=== PATIENT | male | born 1970 | race Caucasian/White ===

== ENCOUNTER 2025-03-04 20:23 | Inpatient (IN) | payer OTHER, SELFPAY ==
--- OUTSIDE RECORDS SUMMARY | 2025-03-04 09:10 | XMS_ITS | Encounter Summary ---
Author Organization [facility] Address [address] [place] [id number] Care Team Providers Care Scrubber System Attendant Name Role Phone Anthony Hand MD Unavailable [phone] Anthony Hand MD Primary Care Provider Reason for Visit * Reason Comments Suicidal Encounter Details Date Type Department Care Team (Late st Contact Info) Description 03/04/2025 9:10 AM EST - 03/04/2025 6:07 PM [facility] Hospital Encounter [facility] Emergency Department [address] [place] [address] Teddy Green MD [address] [place] [id number] Jovani Morfin MD [address] [place] [address] Suicidal ideation (Primary Dx); Self-injurious behavior; Homelessness; Non compliance w medication regimen; Major depression, chronic [F32.9] Discharge Disposition: Psychiatric Hospital Social History Tobacco Use Types Packs/Day Years Used Date Smoking Tobacco: Former Cigarettes Smokeless Tobacco: Former Alcohol Use Standard Drinks/Week Comments Yes 0 (1 standard drink = 0.6 oz pure alcohol) 4-5 drinks per week; beer/whiskey [facility] Utilities Answer Date Recorded In the past 12 months has [employer], gas, oil, or water [employer] threatened to shut off services in your home? No 08/18/2024 Humiliation, Afraid, Rape, and Kick questionnair e Answer Date Recorded Within the last year, have y ou been afraid of your partner or ex-partner? No 08/18/2024 Emotionally Abused Not on file 08/18/2024 Physically Abused Not on file 08/18/2024 Sexually Abused Not on file 08/18/2024 Overall Financial Resource Strain (CARDIA) Answe r Date Recorded How hard is it for you to pa y for the very basics like food, housing, medical care, and heating? Not hard at all 08/18/2024 Hunger Vital Sign Answer Date Recorded Within the past 12 months, y ou worried that your food would run out before you got the money to buy more. Never true 08/19/19 25 Ran Out of Food in the Last Year Not on file 08/18/2024 PRAPARE - Transportation Answer Date Re corded In the past 12 months, has l ack of transportation kept you from medical appointments or from getting medications? No 08/08 In the past 12 months, has l ack of transportation kept you from meetings, work, or from getting things needed for daily living? No 08/18/2024 Housing Stability Vital Sign Answer Nik e Recorded In the last 12 months, was t here a time when you were not able to pay the mortgage or rent on time? No 08/18/2024 Number of Times Moved in the Last Year Not on fi le 08/18/2024 At any time in the past 12 m [facility], were you homeless or living in a group home (including now)? No 08/18/2024 Food Insecurity Answer Date Recorded Within the past 12 months, y ou worried that your food would run out before you got the money to buy more. Never true 08/19/19 25 Ran Out of Food in the Last Year Not on file 08/18/2024 Intimate Partner Violence Answer Date R ecorded Emotionally Abused Not on file 08/18/2024 Within the last year, have y ou been afraid of your partner or ex-partner? No 08/18/2024 Physically Abused Not on file 08/18/2024 Sexually Abused Not on file 08/18/2024 Housing Stability Answer Date Recorded Unstable Housing in the Last Year Not on file 08/18/2024 In the last 12 months, was t here a time when you were not able to pay the mortgage or rent on time? No 08/18/2024 [address] Lived in the Last Year Not on f ile 08/18/2024 AUDIT C Answer Date Recorded How often have you had a dri nk containing alcohol, in the past year? 1 03/04/2025 How many standard drinks con taining alcohol have you had on a typical day when you are drinking, in the past year? 1 1 05/04/2024 How often have you had six o r more drinks on one occasion, in the past year? 1 03/04/2025 Sex and Gender Information Value Date Recorded Sex Assigned at Male 05/26/2023 12:47 AM EST Legal Sex Male 12:47 AM EST Gender Identity Male 05/26/2023 12:47 AM EST Sexual Orientation Not on file documented as of this encounter Last Filed Vital Signs Vital Sign Reading Time Taken Comments Blood Pressure 145/85 03/04/2025 4:36 PM EST Pulse 71 03/04/2025 4:36 PM EST Temperature 36.7 C (98.1 F) 03/04/2025 4:23 PM EST Respiratory Rate 16 03/04/2025 4:36 PM EST Oxygen Saturation 99% 03/04/2025 4:36 PM EST Inhaled Oxygen Concentration - - Weight - - Height - - Body Mass Index - - documented in this encounter Functional Status * Are you deaf or do you have serious difficulty hearing? Answer Date of Assessment Author No 03/04/2025 9:38 AM Elías Araiza * Are you blind or do you have serious difficulty seeing, even when wearing glasses? Answer Date of Assessment Author No 03/04/2025 9:38 AM Elías Araiza * Do you have serious difficulty walking or climbing stairs? Answer Date of Assessment Author No 03/04/2025 9:38 AM Elías Araiza * Do you have difficulty dressing or bathing? Answer Date of Assessment Author No 03/04/2025 9:38 AM Elías Araiza * Because of a physical, mental, or emotional condition, do you have difficulty doing errands alone such as visiting the doctor? Answer Date of Assessment Author No 03/04/2025 9:38 AM Elías Araiza documented as of this encounter Mental Status * Because of a physical, mental, or emotional condition, do you have serious difficulty concentrating, remembering, or making decisions? Answer Entry Date Author No 03/04/2025 9:38 AM Elías Araiza documented in this encounter Medications at Time of Discharge amLODIPine (NORVASC) 5 MG tablet Take 1 tablet (5 mg total) by mouth daily for 14 days. 14 tablet 07/29/2022 aspirin 81 MG EC tablet Take 1 tablet (81 mg total) by mouth daily. 11/01/2023 atorvaSTATin (LIPITOR) 20 MG tablet Take 1 tablet (20 mg total) by mouth at bedtime. atorvaSTATin (LIPITOR) 40 MG tablet Take 1 tablet (40 mg total) by mouth at bedtime for 14 days. 14 tablet 1 07/29/2022 buPROPion (WELLBUTRIN XL) 300 MG 24 hr tablet Take 1 tablet (300 mg total) by mouth daily for 14 days. 14 tablet 1 07/29/2022 clindamycin (CLEOCIN) 300 MG capsule Take 1 capsule (300 mg total) by mouth 2 times a day for 7 days. 14 capsule 02/17/2025 cloNIDine (CATAPRES) 0.1 MG tablet Take 1 tablet (0.1 mg total) by mouth 3 times a day for 14 days. 42 tablet 1 07/29/2022 gabapentin (NEURONTIN) 600 MG tablet Take 1 tablet (600 mg total) by mouth 3 times a day for 14 days. 42 tablet 1 07/29/2022 hydrOXYzine HCL (ATARAX) 50 MG tablet Take 1 tablet (50 mg total) by mouth every 4 hours as needed for itching or anxiety. lithium ER (ESKALITH) 450 MG ER tablet Take 2 tablets (900 mg total) by mouth at bedtime. metFORMIN (GLUCOPHAGE) 1000 MG tablet Take 1 tablet (1,000 mg total) by mouth 2 times a day with breakfast & dinner for 14 days. 28 tablet 1 07/29/2022 pantoprazole (PROTONIX) [address] tablet Take 1 tablet (40 mg total) by mouth daily. 11/01/2023 risperiDONE (RisperDAL) 3 MG tablet Take 1 tablet (3 mg total) by mouth at bedtime. documented as of this encounter Progress Notes * Dustin Vazquez - 03/04/2025 3:00 PM EST Behavioral Health Crisis Consult- Contact Note Patient: Alonso Castro : 1970 Admit Date: 03/04/2025 Date of Consult: 03/04/2025 Time of Consult: 3:00 PM Narrative: Patient: Alonso Castro Accepting Facility: [facility] Accepting Facility Address: [address] [place] [id number], M5 UNIT Accepting MD: Dr Blackwood Arrival Time: 6pm arrival Nurse to Nurse Report: they are calling for N2N Other Labs or Needs: UTOX, EKG HCP/Guardian (if applicable): N/A Reason for Section 12: SI Information Given To: Via secure chat documented in this encounter Consult Notes * Alonso Ortega - 03/04/2025 10:37 AM EST Behavioral Health Crisis Consult - Initial Assessment Patient: Alonso Castro : 1970 Admit Date: 03/04/2025 Date of Consult: 03/04/2025 Time of Consult: 10:37 AM Consult Requested by: Teddy Green MD Reason for Consult: Reason for Consult: SI Chief Complaint Patient presents with Suicidal History of Present Illness: Patient is a 54 y.o. male with past medical and psychiatric history as listed who presented to the hospital on 03/04/2025 for Suicidal. Behavioral Health is consulted for SI. The patient is a 54yo male w/ a hx of numerous hospitalizations who was BIBA after reporting SI to police. He was agitated upon arrival and required physical restraints. He was just d/c from an [facility] hospital yesterday. The patient has been hospitalized numerous times; he reports that he does not want to be alive as long as he is homeless. He does not want to stay at shelters. His d/c plan from the hospital notes that he was planning to go to [place] and stay w/ a friend; he reports that this plan did not work out. He reports that he stayed in a friend's truck last night. The patient presents as guarded and irritable. He reports SI w/ a plan to stab (him)self. He denies HI/SIB/AH. He reports that he sees shadows that other people do not see at times. He reports a prior suicide attempt by strangulation w/ an extension cord. He denies any recent substance use. Medical History: has a past medical history of Depression, Diabetes mellitus, GERD (gastroesophageal reflux disease), and Hypertension. has no past surgical history on file. Psychiatric History: History of psychiatric illness?: Yes History of suicidal ideation?: Yes History of non-suicidal self injury?: Yes History of interpersonal aggression?: No History of past ALDO?: Yes Treatment History?: Yes Current Providers?: ([facility] business case analyst, Leighton [phone]) Home Medications: Prescriptions Prior to Admission[1] Current Medications: Scheduled Medications[2] Current PRN: PRN Medications[3] Allergies: Penicillin Substance Use History Alcohol: Substance and Sexual Activity Alcohol Use Yes Comment: 4-5 drinks per week; beer/whiskey Alcohol Details Questions Responses Alcohol frequency 3 or more times/week Alcohol last use 07/08/22 Alcohol type Beer/whiskey Alcohol amount 4 - 5 beers/shots In the past 12 months,have you had 5 or more drinks(men)/4 or more drinks (women) containing alcohol in one day?: No Tobacco: reports that he has quit smoking. His smoking use included cigarettes. He has quit using smokeless tobacco. E-Cigarettes/Vaping Questions Responses E-Cigarette/Vaping Use Never Assessed Passive Exposure No Counseling Given No E-Cigarette/Vaping Substances Questions Responses Nicotine No THC No CBD No Flavoring No Other No E-Cigarette/Vaping Devices Questions Responses Disposable No Pre-filled or Refillable Cartridge No Refillable Tank No Pre-filled Pod No Other: reports current drug use. Drugs: Cocaine and Marijuana. Addiction/Substance Use Substances last used: Within past 12 months In the past year, have you ever used drugs more than you wanted to?: Yes In the past year, have you ever felt you wanted or needed to cut down on your drug use?: Yes Prior treatment for addiction/substance use?: Yes Significant factors: None reported History of withdrawal symptoms: None reported Overdose history: Intentional overdose Relapse pattern: None reported Consequences of addiction/substance use: Employment, Family, Legal, Social Prescription Medications: In the past 12 months,have you used any prescription medications just for the feeling, more than prescribed or that were no prescribed for you?: No Substances: In the past 12 months, have you used any drugs?: No Amphetamine Details Questions Responses Amphetamine frequency Never used Barbituate Details Questions Responses Barbiturate frequency Never used Benzodiazepine Details Questions Responses Benzodiazepine frequency Never used Cannabis Details Questions Responses Cannabis frequency Past occasional use Cannabis last use 07/14/22 Cocaine Details Questions Responses Cocaine frequency Past occasional use Cocaine last use 08/21/24 Cocaine method Snort Ecstasy Details Questions Responses Ecstasy frequency Never used Hallucinogen Details Questions Responses Hallucinogen frequency Never used Heroin Details Questions Responses Heroin frequency Never used Inhalent Details Questions Responses Inhalant frequency Never used Narcotic Details Questions Responses Narcotic frequency Never used Opiate Details Questions Responses Opiate frequency Never used PCP Details Questions Responses PCP frequency Never used Sedative Details Questions Responses Sedative frequency Never used Other Drug Details Questions Responses Other drug frequency Never used Medical and Psychiatric Consequences: Psychosocial Consequences: Social History: homeless, unemployed Socioeconomic History Marital status: Single Number of children: 1 Social History Narrative Patient has [facility] services - case picker is Leighton Herrmann [phone]. He's been livingwith a friend Paolo. 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 Employment Status: Not Employed Type of Residence: Homeless History: History status: No Personal History: has no history on file for sexual activity. Family History: Family History[4] Physical Exam: Patient Vitals for the past 24 hrs: BP Temp Temp src Pulse Resp SpO2 03/04/25 0922 (!) 176/84 97.3 ??F (36.3 ??C) Temporal 70 18 100 % Mental Status Exam: Mental Status Exam General Appearance: Well-developed and appropriately groomed. Appears older than stated age and mild distress. Level of Consciousness: Alert. Orientation: Oriented to person, place, time and situation. Attitude and Behavior: Interactive. Eye Contact: Good eye contact. Psychomotor Activity: Normal. Language: Normal. Mood: Patient description of mood: depressed. Affect: Flat. Thought Process and Associations: Goal directed. Thought Content: Positive for suicidal ideation, suicidal plan and suicidal intent. No self- injurious ideation, no homicidal ideation and not actively hallucinating. No delusions. Attention Span: Appropriate. Memory: Grossly intact. Fund of Knowledge: Normal. Cognition: Normal. Insight: Poor. Judgment: Poor. Labs, Imaging & Other Studies: Laboratory: Recent lab results have been reviewed and are notable for n/a Results for orders placed or performed during the hospital encounter of 03/04/25 (from the past 24 hours) Basic Metabolic Panel Result Value Ref Range Sodium 141 135 - 146 mmol/L Potassium 3.6 3.4 - 5.2 mmol/L Chloride 100 98 - 110 mmol/L Total CO2/Bicarbonate 26 24 - 32 mmol/L Anion Gap 14 2 - 15 mmol/L BUN 25 (H) 6 - 20 mg/dL Creatinine, Blood 1.20 0.60 - 1.30 mg/dL Glucose, Blood 112 (H) 70 - 100 mg/dL Calcium 10.2 8.5 - 10.5 mg/dL Estimated GFR(CKD-EPI) 71 >=60 mL/min/BSA Plasma Toxicology Screen Result Value Ref Range Acetaminophen Result,Blood <5 (L) 10 - 30 ug/mL Alcohol <10 <10 mg/dL Salicylate Level, Blood <1 <30 mg/dL CBC and Differential Result Value Ref Range WBC 7.22 3.90 - 10.80 K/uL RBC 4.23 4.20 - 5.60 M/uL Hemoglobin 13.8 (L) 14.0 - 17.3 g/dL Hematocrit 43.6 40.0 - 49.0 % MCH 32.6 (H) 25.7 - 32.2 pg MCHC 31.7 (L) 32.0 - 36.0 g/dL MCV 103 (H) 82 - 102 fL RDW 13.0 12.0 - 15.0 % RDW-SD 49.4 32.9 - 69.6 fL Platelet Count 266 150 - 400 K/uL MPV 9.8 8.5 - 13.0 fL Neutrophil 65.9 43.0 - 74.0 % Lymphocyte 21.9 17.0 - 47.0 % Monocyte 8.2 5.0 - 12.0 % Eosinophil 3.0 0.1 - 6.0 % Basophil 0.7 0.0 - 2.0 % Immature Granulocyte ([place], Myelo, Promyelocyte) 0.3 0.0 - 5.0 % Absolute Neutrophil Count 4.76 1.50 - 8.10 K/uL Absolute Immature Granulocyte ([place], Myelo, Promyelocyte) 0.02 0.00 - 0.66 K/uL Absolute Lymphocyte Count 1.58 0.95 - 4.20 K/uL Absolute Monocyte Count 0.59 0.20 - 1.20 K/uL Absolute Eosinophil Count 0.22 0.06 - 0.60 K/uL Absolute Basophil Count 0.05 0.01 - 0.12 K/uL EKG: No studies were reviewed. C-SSRS Screener and SAFE-T: [place] Suicide Severity Rating Scale (C-SSRS) Screener 1) In the past month, have you wished you were or wished you could go to sleep and not wake up?: Yes 2) In the past month, have you actually had any thoughts of killing yourself?: Yes 3) Have you been thinking about how you might do this? (Past 1 Month): Yes 4) Have you had these thoughts and had some intention of acting on them or do you have some intention of acting on them? (Past 1 Month): Yes 5) Have you started to work out or worked out the details of how to kill yourself? Did you intend to carry out this plan? (Past 1 Month): No 6a.) Have you ever done anything, started to do anything, or prepared to do anything to end your life?: Yes 6b.) If 'Yes', was it within the past 3 months?: No C-SSRS Screener Risk Level: High History of Psychiatric Diagnosis:: Mood disorder Presenting Symptoms: Anhedonia Precipitants/ Stressors/ Interpersonal: Homelessness, Inadequate social supports Change in Treatment: Recent inpatient discharge, Non-compliant with treatment Access to lethal methods: Ask specifically about presence or absence of a firearm in the home or ease of accessing: No Step 2: Identify Protective Factors (Protective factors may not counteract significant acute suicide risk factors) Internal Protective Factors: None External Protective Factors: None Step 3: Specific questioning about Thoughts, Plans, and Suicidal Intent - (see Step 1 for Ideation Severity and Behavior) In the past 1 month, how many times have you had these thoughts?: Many times each day In the past 1 month, when you have the thoughts, how long do they last?: 4-8 hours/most of day In the past 1 month, could/can you stop thinking about killing yourself or wanting to if you want to?: Unable to control thoughts In the past 1 month, are there things - anyone or anything (e.g., family, orthodox, pain of ) - that stopped you from wanting to or acting on thoughts of suicide?: Deterrents definitely did not stop you In the past 1 month, what reasons did you have for thinking about wanting to or killing yourself? Was it to end the pain or stop the way you were feeling, or was it to get attention, revenge, or reaction from others? Or both?: Completely to end or stop the pain (you couldn't go on living with the pain you were feeling) Suicidal Ideation Intensity Total Score: 24 Step 4: Guidelines to Determine Level of Risk and Develop Interventions to LOWER Risk Level Suicide Risk Level Determined by the Clinician : High Suicide Risk Rationale for Suicide Risk Level: SI w/ plan to stab himself Management of Suicide Risk: Because the patient is actively suicidal, the patient will be further assessed for psychiatric inpatient level of care Assessment: Patient is a 54 y.o. male with past medical and psychiatric history as above now presents with SI w/ a plan to stab himself. The patient was BIBA by [facility] after making SI statements to them. Despite wanting to come to the hospital, the patient was agitated and required physical restraints upon arrival. He was just d/c from IP psych yesterday. His d/c plan says that he denied SI and was going to go to [place] to stay w/ a friend. He reports that this plan did not work out and he slept in his friend's truck last night while his friend was working at a hotel. He reports that he does not want to be alive if he has to remain homeless. He presents as guarded and slightly irritable. He has been hosp italized numerous times and acknowledges that there is minimal benefit from the hospitalizations other than keeping him safe for a short period of time. Given that he is reporting that he will try tostab himself if he leaves the ER, the patient meets criteria for a section 12/IP LOC at this time. Recommendations: IP Intervention and Stabilization Services Requested: n/a Disposition Recommendation: Inpatient Level of Care Patient meets criteria for opioid use disorder (OUD): No Behavioral Health Diagnosis: F32.9 unsp depressive d/o Duration: Time Spent (min): 90 Discussed with Sr. Logistics Analyst: No Discussed with Medical Team: Yes . Dr. Green Signed by: Alonso Ortega [1] (Not in a hospital admission) [2] [3] [4] Family History Family history unknown: Yes documented in this encounter ED Notes * Irma Mcmanus RN - 03/04/2025 9:19 AM EST Pt BIBEMS from [facility], staff called PD when pt made unknown SI statements. Placed on Section 12 by [employer]. Pt was initially uncooperative and refusing transport upon EMS arrival but became cooperative. En route, he was noted to be biting at his wrists requiring 2 point wrist restraints. Arrives calm and cooperative with care. CBG 226. * Teddy Green MD - 03/04/2025 9:10 AM EST Date of service: 03/04/2025 [facility] EMERGENCY DEPARTMENT EMERGENCY DEPARTMENT ENCOUNTER Arrival Date: 03/04/2025 HPI MDM contains a medically complete HPI PAST MEDICAL HISTORY Past Medical History[1] SOCIAL HISTORY Social History[2] FAMILY HISTORY Family History[3] SURGICAL HISTORY Past Surgical History[4] CURRENT MEDICATIONS Patient Medication List Previous Medications AMLODIPINE (NORVASC) 5 MG TABLET ASPIRIN 81 MG EC TABLET ATORVASTATIN (LIPITOR) 20 MG TABLET ATORVASTATIN (LIPITOR) 40 MG TABLET BUPROPION (WELLBUTRIN XL) 300 MG 24 HR TABLET CLINDAMYCIN (CLEOCIN) 300 MG CAPSULE CLONIDINE (CATAPRES) 0.1 MG TABLET GABAPENTIN (NEURONTIN) 600 MG TABLET HYDROXYZINE HCL (ATARAX) 50 MG TABLET LITHIUM ER (ESKALITH) 450 MG ER TABLET METFORMIN (GLUCOPHAGE) 1000 MG TABLET PANTOPRAZOLE (PROTONIX) [address] TABLET RISPERIDONE (RISPERDAL) 3 MG TABLET ALLERGIES Allergies[5] PHYSICAL EXAM ED Triage Vitals [03/04/25 0922] BP Heart Rate Resp Temp SpO2 (!) 176/84 70 18 97.3 ??F (36.3 ??C) 100 % General: No acute distress HEENT: Normal Appearing Eyelids Neck: Supple Respiratory: No respiratory distress Cardio-Vascular: Normal Rate Abdomen: Non-distended Neurological: No focal neurological deficits appreciated Skin: Warm, Dry Psych: Normal Mood/Affect Labs and Radiology I personally reviewed and interpreted all laboratory results as well as any imaging studies, if ordered, that had resulted at time of admission or discharge. Pending results at time of admission or discharge will be followed up on by the admitting team or QA team, respectively, as necessary. ED COURSE & MEDICAL DECISION MAKING Labs BASIC METABOLIC PANEL - Abnormal Result Value Ref Range Sodium 141 135 - 146 mmol/L Potassium 3.6 3.4 - 5.2 mmol/L Chloride 100 98 - 110 mmol/L Total CO2/Bicarbonate 26 24 - 32 mmol/L Anion Gap 14 2 - 15 mmol/L BUN 25 (*) 6 - 20 mg/dL Creatinine, Blood 1.20 0.60 - 1.30 mg/dL Glucose, Blood 112 (*) 70 - 100 mg/dL Calcium 10.2 8.5 - 10.5 mg/dL Estimated GFR(CKD-EPI) 71 >=60 mL/min/BSA TOXICOLOGY SCREEN, BLOOD - Abnormal Acetaminophen Result,Blood <5 (*) 10 - 30 ug/mL Alcohol <10 <10 mg/dL Salicylate Level, Blood <1 <30 mg/dL CBC AND DIFFERENTIAL - Abnormal WBC 7.22 3.90 - 10.80 K/uL RBC 4.23 4.20 - 5.60 M/uL Hemoglobin 13.8 (*) 14.0 - 17.3 g/dL Hematocrit 43.6 40.0 - 49.0 % MCH 32.6 (*) 25.7 - 32.2 pg MCHC 31.7 (*) 32.0 - 36.0 g/dL MCV 103 (*) 82 - 102 fL RDW 13.0 12.0 - 15.0 % RDW-SD 49.4 32.9 - 69.6 fL Platelet Count 266 150 - 400 K/uL MPV 9.8 8.5 - 13.0 fL Neutrophil 65.9 43.0 - 74.0 % Lymphocyte 21.9 17.0 - 47.0 % Monocyte 8.2 5.0 - 12.0 % Eosinophil 3.0 0.1 - 6.0 % Basophil 0.7 0.0 - 2.0 % Immature Granulocyte ([place], Myelo, Promyelocyte) 0.3 0.0 - 5.0 % Absolute Neutrophil Count 4.76 1.50 - 8.10 K/uL Absolute Immature Granulocyte ([place], Myelo, Promyelocyte) 0.02 0.00 - 0.66 K/uL Absolute Lymphocyte Count 1.58 0.95 - 4.20 K/uL Absolute Monocyte Count 0.59 0.20 - 1.20 K/uL Absolute Eosinophil Count 0.22 0.06 - 0.60 K/uL Absolute Basophil Count 0.05 0.01 - 0.12 K/uL DRUG SCREEN, URINE CBC AND DIFFERENTIAL Narrative: The following orders were created for panel order CBC and Differential. Procedure Abnormality Status --------- ------ CBC and Differential[[id number]] Abnormal Final result Please view results for these tests on the individual orders. No orders to display No orders to display HPI: Historian: Patient 54 y.o. male with history of depression, obesity, diabetes, hypertension, multiple psychiatric hospitalizations presents for evaluation of suicidal ideation. Patient states that he has been living inhis friend's truck. He has a plan to stab himself. Denies HI. History of self-injurious behaviors with biting self. MEDICAL DECISION MAKING: Consideration of Admission/Observation: Escalation of care: yes; ED OBS for psych Discussion with Other Healthcare Provider: Behavioral Health provider: Patient's presentation and condition management discussed Social Work: Patient's social situation and assistance needs discussed Outside records reviewed: -Care everywhere: reviewed for medications, allergies -PDMP: reviewed Urinalysis not indicated as pt without fever or urinary symptoms.. Chest x-ray not indicated as patient without hypoxia or lung findings on physical exam. Prescription medication considered, but not given, after discussion with patient/family: Antibiotics not indicated as patient's presentation does not appear to be bacterial in nature. Social determinants of health that significantly affected care: Patient is homeless ED COURSE/ADDITIONAL MEDICAL DECISION MAKIN-year-old male with hypertension, obesity, lit-[id number] diabetes, depression presents with SI with plan to stab himself. Medically cleared by physical examination. Patient is biting himself. He was placed in soft restraints. Dispo per psychiatry/social work evaluations. Placed in ED observation for safe disposition planning. Clinical Impression Suicidal ideation (Primary) Self-injurious behavior Homelessness Non compliance w medication regimen Note to patient: The Cures Act makes medical notes like these available to patients inthe interest of transparency. However, be advised this is a medical document. It is intended primarily as a peer to peer communication. It is written in medical language and may contain abbreviationsor verbiage that are unfamiliar. It may appear blunt or direct. This is because medical documents are intended to carry relevant information, facts as evident, and the clinical opinion of the practitioner only as of the time of writing. [1] Past Medical History: Diagnosis Date Depression Diabetes mellitus GERD (gastroesophageal reflux disease) Hypertension [2] Social History Socioeconomic History Marital status: Single Number of children: 1 Tobacco Use Smoking status: Former Types: Cigarettes Smokeless tobacco: Former Substance and Sexual Activity Alcohol use: Yes Comment: 4-5 drinks per week; beer/whiskey Drug use: Yes Types: Cocaine, Marijuana Comment: pt denies regular use, MJ occas, cocaine 1-2x month [3] Family History Family history unknown: Yes [4] No past surgical history on file. [5] Allergies Allergen Reactions Penicillin Unknown Teddy Green MD 03/04/25 1325 documented in this encounter Plan of Treatment Not on file documented as of this encounter Procedures Procedure Name Priority Date/Time Associated Diagnosis Comments ECG 12-LEAD STAT 03/04/2025 3:34 PM EST CBC AND DIFFERENTIAL STAT 03/04/2025 9:44 AM EST TOXICOLOGY SCREEN, BLOOD STAT 03/04/2025 9:44 AM EST CBC AND DIFFERENTIAL STAT 03/04/2025 9:44 AM EST BASIC METABOLIC PANEL STAT 03/04/2025 9:44 AM EST documented in this encounter Results * ECG 12 lead (03/04/2025 3:34 PM EST) 03/04/2025 3:35 PM EST Narrative BILKyra CV BIDM ECG - 03/04/2025 3:34 PM EST See ED note for ECG result information. us Teddy Green MD ECG ORDERABLES Final Res ult LUIS ALFREDO CV BIDM ECG * (ABNORMAL) CBC and Differential (03/04/2025 9:44 AM EST) WBC 7.22 3.90 - 10.80 K/uL 03/04/2025 10:06 AM [facility] RBC 4.23 4.20 - 5.60 M/uL 03/04/2025 10:06 AM [facility] Hemoglobin 13.8(L) 14.0 - 17.3 g/dL 03/04/2025 10:06 AM [facility] Hematocrit 43.6 40.0 - 49.0 % 03/04/2025 10:06 AM [facility] MCH 32.6(H) 25.7 - 32.2 pg 03/04/2025 10:06 AM [facility] MCHC 31.7(L) 32.0 - 36.0 g/dL 03/04/2025 10:06 AM [facility] MCV 103(H) 82 - 102 fL 03/04/2025 10:06 AM [facility] RDW 13.0 12.0 - 15.0 % 03/04/2025 10:06 AM [facility] RDW-SD 49.4 32.9 - 69.6 fL 03/04/2025 10:06 AM [facility] Platelet Count 266 150 - 400 K/uL 03/04/2025 10:06 AM [facility] MPV 9.8 8.5 - 13.0 fL 03/04/2025 10:06 AM [facility] Neutrophil 65.9 43.0 - 74.0 % 03/04/2025 10:06 AM [facility] Lymphocyte 21.9 17.0 - 47.0 % 03/04/2025 10:06 AM [facility] Monocyte 8.2 5.0 - 12.0 % 03/04/2025 10:06 AM [facility] Eosinophil 3.0 0.1 - 6.0 % 03/04/2025 10:06 AM [facility] Basophil 0.7 0.0 - 2.0 % 03/04/2025 10:06 AM [facility] Immature Granulocyte ([place], Myelo, Promyelocyte) 0.3 0.0 - 5.0 % 03/04/2025 10:06 AM [facility] Absolute Neutrophil Count 4.76 1.50 - 8.10 K/uL 03/04/2025 10:06 AM [facility] Absolute Immature Granulocyte ([place], Myelo, Promyelocyte) 0.02 0.00 - 0.66 K/uL 03/04/2025 10:06 AM [facility] Absolute Lymphocyte Count 1.58 0.95 - 4.20 K/uL 03/04/2025 10:06 AM [facility] Absolute Monocyte Count 0.59 0.20 - 1.20 K/uL 03/04/2025 10:06 AM [facility] Absolute Eosinophil Count 0.22 0.06 - 0.60 K/uL 03/04/2025 10:06 AM [facility] Absolute Basophil Count 0.05 0.01 - 0.12 K/uL 03/04/2025 10:06 AM [facility] Blood PERIPHERAL BLOOD SPECIMEN / Unknown Venipuncture / Unknown 03/04/2025 9:44 AM EST 03/04/2025 9:46 AM EST us Teddy Green MD LAB BLOOD ORDERABLES Donna valentin Result [facility] [address] [place] [address], * (ABNORMAL) Plasma Toxicology Screen (03/04/2025 9:44 AM EST) Acetaminophen Result,Blood <5(L) 10 - 30 ug/mL 03/04/2025 10:12 AM [facility] Alcohol <10 <10 mg/dL 03/04/2025 10:12 AM [facility] Salicylate Level, Blood <1 <30 mg/dL 03/04/2025 10:12 AM [facility] Blood PERIPHERAL BLOOD SPECIMEN / Unknown Venipuncture / Unknown 03/04/2025 9:44 AM EST 03/04/2025 9:46 AM EST us Teddy Green MD LAB BLOOD ORDERABLES Donna l Result [facility] [address] [place] [address], * (ABNORMAL) Basic Metabolic Panel (03/04/2025 9:44 AM EST) Sodium 141 135 - 146 mmol/L 03/04/2025 10:12 AM [facility] Potassium 3.6 3.4 - 5.2 mmol/L 03/04/2025 10:12 AM [facility] Chloride 100 98 - 110 mmol/L 03/04/2025 10:12 AM [facility] Total CO2/Bicarbonat e 26 24 - 32 mmol/L 03/04/2025 10:12 AM [facility] Anion Gap 14 2 - 15 mmol/L 03/04/2025 10:12 AM [facility] BUN 25(H) 6 - 20 mg/dL 03/04/2025 10:12 AM [facility] Creatinine, Blood 1.20 0.60 - 1.30 mg/dL 03/04/2025 10:12 AM [facility] Glucose, Blood 112(H) 70 - 100 mg/dL 03/04/2025 10:12 AM [facility] Calcium 10.2 8.5 - 10.5 mg/dL 03/04/2025 10:12 AM [facility] Estimated GFR(CKD-EPI) 71 >=60 mL/min/BSA 03/04/2025 10:12 AM [facility] Blood PERIPHERAL BLOOD SPECIMEN / Unknown Venipuncture / Unknown 03/04/2025 9:44 AM EST 03/04/2025 9:46 AM EST Teddy Green MD LAB BLOOD ORDERABLES Donna l Result [facility] [address] [place] [address], [place] documented in this encounter Visit Diagnoses Diagnosis Suicidal ideation- Primary Self-injurious behavior Unspecified nonpsychotic mental disorder Homelessness Lack of housing Non compliance w medication regimen Major depression, chronic [F32.9] documented in this encounter Administered Medications Inactive Administered Medications - up to 3 most recent administrations Medication Order MAR Action Action Date Dose Rate Site amLODIPine (NORVASC) tablet 10 mg 10 mg, Oral, Daily, First dose on Mon03/04/25 at 1421, Until Discontinued Given 03/04/2025 4:32 PM EST 10 mg aspirin EC tablet 81 mg 81 mg, Oral, Daily, First dose on Mon03/04/25 at 1421, Until Discontinued Given 03/04/2025 4:32 PM EST 81 mg buPROPion (WELLBUTRIN XL) 24 hr tablet 300 mg 300 mg, Oral, Daily, First dose on Mon03/04/25 at 1421, Until Discontinued Given 03/04/2025 4:31 PM EST 300 mg gabapentin (NEURONTIN) capsule 600 mg 600 mg, Oral, 3 times daily, First dose on Mon03/04/25 at 1600, Until Discontinued Given 03/04/2025 4:32 PM EST 600 mg pantoprazole (PROTONIX) DR tablet 40 mg 40 mg, Oral, Daily, First dose on Mon03/04/25 at 1421, Until Discontinued Given 03/04/2025 4:32 PM EST 40 mg documented in this encounter Active and Recently Administered Medications Times are shown in EST. Scheduled Medication Order 03/02/2025 03/03/2025 03/04/2025 amLODIPine (NORVASC) tablet 10 mg 10 mg, Oral, Daily, First dose on Mon03/04/25 at 1421, Until Discontinued 1632 (Given - Provid er: Irma Mcmanus RN) aspirin EC tablet 81 mg 81 mg, Oral, Daily, First dose on Mon03/04/25 at 1421, Until Discontinued 1632 (Given - Provid er: Irma Mcmanus RN) atorvaSTATin (LIPITOR) tablet 20 mg 20 mg, Oral, At bedtime, First dose on Mon03/04/25 at 2100, Until Discontinued buPROPion (WELLBUTRIN XL) 24 hr tablet 300 mg 300 mg, Oral, Daily, First dose on Mon03/04/25 at 1421, Until Discontinued 1631 (Given - Provid er: Irma Mcmanus RN) gabapentin (NEURONTIN) capsule 600 mg 600 mg, Oral, 3 times daily, First dose on Mon03/04/25 at 1600, Until Discontinued 1632 (Given - Provid er: Irma Mcmanus RN) lithium ER (ESKALITH) ER tablet 900 mg 900 mg, Oral, At bedtime (IBH), First dose on Mon03/04/25 at 2100, Until Discontinued metFORMIN (GLUCOPHAGE) tablet 1,000 mg 1,000 mg, Oral, 2 times daily with breakfast and dinner, First dose on Mon03/04/25 at 1730, Until Discontinued 1730 (Canceled Entry - Provider: Automatic Discharge Provider - Comment: Automatically canceled at discontinue of medication order) pantoprazole (PROTONIX) DR tablet 40 mg 40 mg, Oral, Daily, First dose on Mon03/04/25 at 1421, Until Discontinued 163 (Given - Provid er: Irma Mcmanus RN) risperiDONE (RisperDAL) tablet 3 mg 3 mg, Oral, At bedtime, First dose on Mon03/04/25 at 2100, Until Discontinued PRN Medication Order 03/02/2025 03/03/2025 03/04/2025 hydrOXYzine HCL (ATARAX) tablet 50 mg 50 mg, Oral, Every 4 hours PRN, Starting on Mon03/04/25 at 1419, Until Mon03/04/25 at 2007, itching, anxiety documented in this encounter Care Teams Scrubber System Attendant Relationship Specialty Start Date End Date Anthony Hand MD [address] [place] [address] PCP - Insurance Assigned PCP 07/18/22 Anthony Hand MD [address] [place] [address] PCP - General Family Practice 07/18/22 documented as of this encounter
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
--- OUTSIDE RECORDS SUMMARY | 2025-03-04 20:31 | XMS_ITS | Encounter Summary ---
Author Organization [facility]el[facility] Aaliyah shukla Address [address] [place] [address] Care Team Providers Care Interactive Art Director Name Role Phone Anthony Hand MD Unavailable [phone] Atnhony Hand MD Primary Care Provider [phone] Encounter Details Date Type Department Care Team (Latest Contact Info) Description 03/04/2025 Travel Social History Tobacco Use Types Packs/Day Years Used Date Smoking Tobacco: Former Cigarettes Smokeless Tobacco: Former Alcohol Use Standard Drinks/Week Comments Yes 0 (1 standard drink = 0.6 oz pure alcohol) 4-5 drinks per week; beer/whiskey [facility] Utilities Answer Date Recorded In the past 12 months has [email or web address], gas, oil, or water [facility] threatened to shut off services in your [...] any time in the past 12 m [facility], were you homeless or living in a custodial (including now)? No 08/18/2024 Food Insecurity Answer Date Recorded Within the past 12 months, y ou worried that your food would run out before you got the money to buy more. Never true 08/19/19 Ran Out of Food in the Last [...] on file documented as of this encounter Functional Status * Are you deaf or do you have serious difficulty hearing? Answer Date of Assessment Author No 03/04/2025 9:38 AM EST Iwunze, A shley * Are you blind or do you have serious difficulty seeing, even when wearing glasses? Answer Date of Assessment Author No 03/04/2025 9:38 AM LARON Chloeeugene Elías dena * Do you have serious difficulty walking or climbing stairs? Answer Date of Assessment Author No 03/04/2025 9:38 AM LARON Coronaeugene Elías shdawson * Do you have difficulty dressing or bathing? Answer Date of Assessment Author No 03/04/2025 9:38 AM LARON Alva Elías dena * Because of a physical, mental, or emotional condition, do you have difficulty doing errands alone such as visiting the doctor? Answer Date of Assessment Author No 03/04/2025 9:38 AM LARON Esmeifeanyi Elías martindawson documented as of this encounter Mental Status * Because of a physical, mental, or emotional condition, do you have serious difficulty concentrating, remembering, or making decisions? Answer Entry Date Author No 03/04/2025 9:38 AM LARON Alva Elías dena documented in this encounter Plan of Treatment Not on file documented as of this encounter Visit Diagnoses Not on filedocumented in this encounter Care Teams Interactive Art Director Relationship Specialty Start Date End Date Anthony Hand MD [address] [place] [address] PCP - Insurance Assigned PCP 07/18/22 Anthony Hand MD [address] [place] [address] PCP - General Family Practice 07/18/22 documented as of this encounter
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
[2025-03-04 21:05] VITALS: BP 127/80; PULSE 89; TEMP 36.6; O2SAT 95
[2025-03-04 21:36] LABS: Glucose, Whole Blood 153 mg/dL (60-115)
--- NOTE | 2025-03-05 03:10 | PC.ADMIT ---
Addendum entered by Apurva Short RN 03/05/25 03:29: Patient denies nictotine use, and would like a flu shot. Original Note: Alonso Castro was admitted to as a CV on 15 minute checks from [facility] at 2054 on 03/04/25. His skin and safety check was completed; this was remarkable for reddened areas on the left wrist,which are a result of SIB of biting, and a reddened rash under his pannus. Mr. Castro was agitated when he was admitted to [facility], and was restrained physically at that time. He has a history of psychiatric admissions; he has a PMH that includes Diabetes, hypertension, GERD, and his EKG revealed a 1st degree AV block. He reports using cocaine and marijuana, although he has not submitted a urine yet for a toxicology screen. He states he does not drink often, and his last drink was 07/08/24. He endorses SI at the time of admission, and is depressed and anxious, although his affect is flat. He was pleasant but guarded with this race and sports book writer; when his safety check was done, he had a bagged lunch then retired to [address].
[2025-03-05 08:00] VITALS: BP 131/60; PULSE 75; TEMP 36.8; O2SAT 96
--- NOTE | 2025-03-05 08:12 | HO.PM.IMCN ---
History of Present Illness Data of Consult Service Date: 03/05/25 Primary Care Provider: Nonstaff Physician HPI Reason for consult: [place] consult 54-year-old male with past medical history of depression, diabetes, GERD, hypertension, obesity presented to the emergency room for suicide ideation with plans to stab himself. In the ED he was noted to be biting himself placed in soft restraints. patient's initial metabolic panel without any evidence of renal injury, electrolyte imbalance. CBC without anemia or leukocytosis. Patient bite jamin on his right wrist from repeatedly biting himself. No evidence of redness, warmth, or drainage noted. He has no medical concerns. Review of Systems Review of Systems: Denies any shortness of breath, chest pain, palpitations, dizziness, lightheadedness, headaches, dysuria, abdominal pain or discomfort, nausea, vomiting or diarrhea. Denies chills, body aches, muscle aches, fatigue or weight loss. PMFSH Social History Household Members: Friend(s) Housing: Homeless Housing Other:: Hot in [place] Do you presently have visiting nurse or other home services: No Patient Tobacco Use Status: Never used Tobacco Currently Displaying Signs/Symptoms of Drug Intoxication Withdrawal: No Have you been hit, kicked, punched, or otherwise hurt by someone within the past year? If so, by whom?: No Do you feel safe in your current relationship?: No Current Relationship Is there a partner from a previous relationship who is making you feel unsafe now?: No Are you made to feel afraid or neglected: No Spiritual Healthcare Practices: none Rastafari Healthcare Practices: none Cultural Healthcare Practices: none Advance Directives: No Advance Directives Information Provided: No Do you have thoughts of harming others: None Do you have a plan to hurt others: Specific Recently lost weight without trying: No How much weight loss: Not applicable Eating poorly because of decreased appetite: No Nutrition screen score: 0 Nutrition Risks: No Nutritional Risk Poor oral hygiene: No Meds Allergies Allergy/AdvReac Type Severity Reaction Status Date / Time Penicillins (PCN) AdvReac Unknown Unknown Unverified 03/04/25 19:21 Active Medications: Current Medications Acetaminophen (Acetaminophen 325 Mg Tablet) 650 mg PO Q6H PRN PRN Reason: Headache/Pain, Scale 1-10 Al Hydroxide/Mg Hydroxide (Magnesium Hydrox/Alum Hydrox 30 Ml Oral.Susp) 30 ml PO Q6H PRN PRN Reason: Heartburn/Nausea Dextrose (Dextrose 50 % 25 Gm/50 Ml Syringe) 25 gm IVPUSH Q15M PRN; Protocol PRN Reason: per Hypoglycemia Standing Ord. Glucose (Glucose Gel 15 Gm Gel..Gram.) 15 gm PO Q15M PRN; Protocol PRN Reason: per Hypoglycemia Standing Ord. Hydroxyzine HCl (Hydroxyzine Hcl 25 Mg Tablet) 25 mg PO Q6H PRN PRN Reason: mild anxiety Insulin Human Lispro (Insulin Lispro 100 Unit/Ml 3 Ml Vial) 0 unit SUBCUT [facility]; Protocol Last Admin: 03/04/25 22:14 Dose: 2 unit Magnesium Hydroxide (Milk Of Magnesia 30 Ml Oral.Susp) 30 ml PO DAILY PRN PRN Reason: Constipation Nicotine (Nicotine 21 Mg Patch.Td24) 21 mg TRANSDERMA DAILY PRN PRN Reason: nicotine craving Nicotine Polacrilex (Nicotine Polacrilex 2 Mg Gum) 2 mg BUCCAL Q2H PRN PRN Reason: Nicotine Cravings Olanzapine (Olanzapine 5 Mg Tablet) 5 mg PO BID PRN PRN Reason: agitation Trazodone HCl (Trazodone Hcl 50 Mg Tablet) 50 mg PO BEDTIME MRX1 PRN PRN Reason: Insomnia Home Medications ?Medication ?Instructions ?Recorded ?Confirmed ?Last Taken ?Type amlodipine 5 mg tablet (Norvasc) 5 mg PO DAILY 03/05/25 03/05/25 03/04/25 08:00 History gabapentin 300 mg capsule 600 mg PO TID Leg pain 03/05/25 03/05/25 03/04/25 17:00 History (Neurontin) 600 metformin 500 mg tablet 500 mg PO BID 03/05/25 03/05/25 03/04/25 17:00 History Physical Exam Vital Signs and Narrative: Vital Signs: Last Vital Signs Temp 97.9 F 03/04/25 21:05 Pulse 89 03/04/25 21:05 BP 127/80 03/04/25 21:05 Pulse Ox 95 03/04/25 21:05 O2 Del Method Room Air 03/04/25 21:05 Alert and oriented X3, calm and cooperative. Answers questions. Neuro: CN II-X11 intact, no deficits, visual acuity intact EYES: PERRLA, EOM intact ENT: Hearing intact, MMM Cardiac: S1 S2 RRR, No ectopy Pulmonary: lungs clear to auscultation, No increased WOB. Abdominal: BS active in all 4 quadrants, no guarding or tenderness MSK: Strength 5/5 upper and lower extremities : Deferred Extremities: No edema in lower extremities Psych: Mood stable, Quiet and cooperative. Skin: Warm and dry, Intact. Bite jamin as shown. No evidence of infection at this time Results Labs 03/05/25 09:53 Labs: Laboratory Results - last 24 hr 03/04/25 21:31 POC Glucose 153 H Assessment and Plan (1) Insulin dependent type 2 diabetes mellitus: Status: Acute Plan 54-year-old male with a past medical history listed below presents to the emergency room with suicidal ideation with plans to stab himself and self-harming behavior. Now admitted for inpatient psychiatric stabilization Depression/SI/self-harming behavior Treatment per psychiatric team Type 2 Diabetes Not on any medications, Recent A1c 6.3 Encouraged dietary changes, exercise and weight loss Continue metformin 500 mg b.i.d. Hypertension Continue Norvasc Self-inflicted bite jamin Continue to monitor for evidence of infection. Thank you for allowing me to participate in the care of this patient. Will follow with you, please notify medical provider with any changes in condition or concerns.
[2025-03-05 08:42] LABS: Glucose, Whole Blood 134 mg/dL (60-115)
--- NOTE | 2025-03-05 09:31 | HO.PSYADMNOT ---
HPI Date of Service: 03/05/25 Chief Complaint: SI with plan Sources of Information: patient interviewed, chart reviewed and crisis/core team assessment reviewed HPI Subjective Notes: Estrella Warning and Conditional Voluntary Healthcare Proxy: No Guardianship: No Medical Problems Affecting Mental Status: No Narrative: Per ED note: Patient is is 54 years old single American-speaking male with history of depression, diabetes type 2, GERD, and hypertension presents to the hospital for suicidal thoughts with plan to staff himself. Patient was BIBA the reporting SI to police. Patient was agitated upon arrival and was required physical restraints. He was just discharged from [facility] 03/03. History of numerous hospitalizations, being homeless. He does not want to stay at the shelters. Per discharge note from previous admission, patient was planning to go to [place] to stay with a friend but the plan did not work out. Reports he sees shadows that of other people that not present. History of prior suicide attempts by strangulation with an extension cord. Denies substance use. On M5: Patient met with the delinquency prevention social worker and this provider in the group room C. Report main reason for being here is suicidal with plan to stab myself . Report that he had a knife that he hid it in the brush prior to coming to the ED. Report that he does not feel safe here on the unit. SIB via bitting self which he occasionally bites on his left wrist a couple of times during assessment. Prior to meeting with this provider, nursing reports that patient requested to be on 1-1 which this provider does not think it is necessary as even 5 min safety check wont change his behavior. Report seeing shadows of male and female person but been for while since last time he had that experience. +HI toward his best friend who is now living in [place]. Report 3 suicide attempts via jump of the bridge, suffocated himself with a plastic bag, or with the extended court. SW and this provider asks patient what his goals for the admission and what we could do to help him. Patient does not have goal set. Denies depression or anixety or irritalbe mood. He plans to take shower and explain shower maybe a good relax and coping skill. At the end of conversation, on the way to the door out of the room, patient states that he would kill himself in the shower. Discuss with SW regarding his behavior which we suspects he presents with borderline personality trait. Appear to get attention or secondary gain. SW reports to nursing staff, if necessary, will initiate Behavior plan. Patient is A+Ox3, wearing hospital attire, appear anxious and guarded, demonstrated unsafe self bite behaviors, not bleeding. Some skills issues related to hx of biting as well. Seen by hospitalist. Speech is WNL, sometimes long pause or not want to answer questions. Thought process somewhat disorganized with possible concrete and limited. Poor sleep. Eye mostly avoided. Thought content with passive SI and HI. Not appear to be psychotic. Do not make any delusional or paranoid statements. Poor judgment and insight. Continue to be on 15 minute checks for safety. pa Past Psychiatric History: 20 [facility] admissions in the past couple of years. Last admission was at [facility]. Hx of Respite x3 with last admssion was a couple years ago No Detox hx Have [employer] working [employer]. Medical Evaluation Reviewed: Hospitalist Kavitaal Pending [facility] Narrative: Diabetes HTN Family History: Denies family hx of mental health. Report father is alcoholic. Both parents are . Social History: Single, homeless, has one 34 y.o daughter somewhat involved in his care. Her name is Anupama Currently unemployed. Staying at the hotel where his friend is working. Report able to return was on 7th grade. Do not want to do school. Report he has good childhood and had learning disability. 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 Receive some support money and food stamp but was denied SSI/SSDI. Substance History: Report occasionally binge drinking 30-pack once in a while . Last drink was a couple weeks ago. OPAL: started using at age of 25 y.o. Last use was Monday with $100 every couple of weeks . Denies other substance use Trauma History: Denies Diagnostics Vital Signs (24Hr): Vital Signs - 24 hr 03/04/25 21:05 03/05/25 08:00 Temperature 97.9 F 98.2 F Pulse Rate 89 75 Blood Pressure 127/80 131/60 Pulse Oximetry 95 96 Oxygen Delivery Method Room Air Room Air Labs 03/05/25 09:53 Labs: Laboratory Results - last 48 hr 03/04/25 03/05/25 21:31 08:38 POC Glucose 153 H 134 H Meds/Allergies Meds Home Medications ?Medication ?Instructions ?Recorded ?Confirmed ?Type amlodipine 5 mg tablet (Norvasc) 5 mg PO DAILY 03/05/25 03/05/25 History gabapentin 300 mg capsule 400 mg PO TID Leg pain 03/05/25 03/05/25 History (Neurontin) metformin 500 mg tablet 500 mg PO BID 03/05/25 03/05/25 History Allergies Allergies Allergy/AdvReac Type Severity Reaction Status Date / Time Penicillins (PCN) AdvReac Unknown Unknown Unverified 03/04/25 19:21 Mental Status Exam Mental Status Exam Narrative: Patient is A+Ox3, wearing hospital attire, appear anxious and guarded, demonstrated unsafe self bite behaviors, not bleeding. Some skills issues related to hx of biting as well. Seen by hospitalist. Speech is WNL, sometimes long pause or not want to answer questions. Thought process somewhat disorganized with possible concrete and limited. Poor sleep. Eye mostly avoided. Thought content with passive SI and HI. Not appear to be psychotic. Do not make any delusional or paranoid statements. Poor judgment and insight. Continue to be on 15 minute checks for safety. pa Assessment & Plan Assessment & Plan (1) Depression, unspecified: Status: Acute Code(s): F32.A - Depression, unspecified (2) Insulin dependent type 2 diabetes mellitus: Status: Acute Code(s): E11.9 - Type 2 diabetes mellitus without complications; Z79.4 - care home (current) use of insulin (3) HTN (hypertension): Status: Acute Code(s): I10 - Essential (primary) hypertension Plan HPI: Patient is is 54 years old single American-speaking male with history of depression, diabetes type 2, GERD, and hypertension presents to the hospital for suicidal thoughts with plan to stab himself. Patient was BIBA the reporting SI to police. Patient was agitated upon arrival and was required physical restraints. He was just discharged from [facility] 03/03. History of numerous hospitalizations, being homeless. He does not want to stay at the shelters. Per discharge note from previous admission, patient was planning to go to [place] to stay with a friend but the plan did not work out. Formulation/clinical reasoning: Homeless, more compliant with treatment, noncompliant with medications after discharge, making conditional suicidal statements, he will kill himself with a knife which is available, do not feel safe in community, no outpatient providers, limited supports in community. Current time, does not feel safe in the hospital neither. Even the above information, patient would be benefit in restrictive environment for his own safety, medication management, and refer patient to Psychiatric Services for aftercare. Hospital course: 03/05/25: Discussed with patient regarding medication. Reported that he has not taking medication for 6 months- which was not consistent with ED reports he was in the IP and was just discharged a couple of days ago. Able to recall some of his own medications. Start Seroquel 50 at bedtime with b.i.d. p.r.n. for agitation/severe anxiety Zoloft 50 mg once daily in the morning for depression/anxiety Melatonin 6 mg at bedtime for insomnia Gabapentin 400 t.i.d. for nerve pain on legs. Metformin 500 twice a day for diabetes Point of care q.i.d. per diabetic protocol. Amlodipine 5 mg daily in the morning. Patient good like to have flu vaccine. Plan Patient on 15 minute checks for safety. Initiate behavioral plan not able to remain safe during 15 minute checks. Admitted to M5. CV. Work with treatment team to do collateral. No current outpatient psychiatric services/therapist Contact the hospitalist regarding hospitalist consultation on admission: pending. Patient bite jamin on his right wrist from repeatedly biting himself. No evidence of redness, warmth, or drainage noted. Patient educated on: diagnosis, medication risk/benefits, substance abuse and therapeutic strategies Informed Consent: understands and further education needed Reason for continued inpatient stay Substantial Risk for: med/psych decompensation Statement Statement: I have reviewed the history and physical and performed a pertinent examination on my patient. No changes have occurred unless specified. If the History and Physical was not performed prior to admission, the Hospitalist's service will be consulted for completing the admission physical. Time Spent With Patient Time: Total time managing care of this patient today ____ minutes.
[2025-03-05 09:39] VITALS: BMI 31.5
--- NOTE | 2025-03-05 09:53 | PC.NURSE ---
PT REPORTING SI W/PLAN TO BITE HIMSELF . THEN STATED HE HAS ANOTHER PLAN BUT WILL NOT DISCLOSE. PT IS ON 5-MIN CHECK FOR SUICIDALITY. PROVIDER DIPAK, PROGRAM PROFESSIONAL & SW ALL MADE AWARE. ASKED PT TO CONTRACT FOR SAFETY BUT HE DECLINED. SAYS HE WANTS A 1:1. CLINICIANS MADE AWARE.
--- NOTE | 2025-03-05 09:56 | PC.NURSE ---
PT DECLINES ADDICTIONS CONSULT
[2025-03-05 11:00] LABS: Alanine Aminotransferase 19 U/L (0-40); Albumin Level 4.5 g/dL (3.5-5.0); Alkaline Phosphatase 107 U/L (39-117); Anion Gap 12 (12-20); Aspartate Amino Transferase 23 U/L (5-37); Blood Urea Nitrogen 23 mg/dL (9-16); Calcium 10.1 mg/dL (8.4-10.2); Carbon Dioxide 23 mmol/L (22-29); Chloride 108 mmol/L (96-108); Cholesterol 161 mg/dL (<200); Creatinine Clr Calc Pharmacy 97.2; Estimated Glomerular Filt Rate > 60; HDL Cholesterol 57 mg/dL (>40); Magnesium 1.5 mg/dL (1.6-2.6); Potassium 4.4 mmol/L (3.3-5.1); Sodium 139 mmol/L (135-145); Total Protein 8.2 g/dL (6.5-8.0); Triglycerides 134 mg/dL (<150)
[2025-03-05 11:18] LABS: Free T4 (Free Thyroxine) 1.00 ng/dL (0.71-1.85); Thyroid Stimulating Hormone 1.49 uIU/mL (0.32-4.0)
[2025-03-05 11:29] LABS: Folate 8.1 ng/mL (> or = 4.0); Vitamin B12 310 pg/mL (200-900)
[2025-03-05] MEDS: Flu Vacc TS2025-26(6mo up)/PF 0.5 ML SYRINGE IM (11:40)
[2025-03-05 16:16] LABS: Glucose, Whole Blood 186 mg/dL (60-115)
[2025-03-05] MEDS: Milk of Magnesia 30 ML ORAL.SUSP PO (18:56)
[2025-03-05 20:00] VITALS: BP 124/76; PULSE 78; RESP 16; TEMP 36.6; O2SAT 98
[2025-03-05 20:42] LABS: Glucose, Whole Blood 161 mg/dL (60-115)
[2025-03-06 08:04] VITALS: BP 131/78; PULSE 70; RESP 16; TEMP 36.4; O2SAT 97
[2025-03-06 08:16] LABS: Glucose, Whole Blood 120 mg/dL (60-115)
[2025-03-06 11:48] LABS: Glucose, Whole Blood 207 mg/dL (60-115)
[2025-03-06] MEDS: Milk of Magnesia 30 ML ORAL.SUSP PO (12:45)
--- NOTE | 2025-03-06 13:11 | ECG_ITS ---
Test Reason : chest pain Blood Pressure : */* mmHG Vent. Rate : 90 BPM Atrial Rate : 90 BPM P-R Int : 172 ms QRS Dur : 90 ms QT Int : 350 ms P-R-T Axes : 26 26 19 degrees QTcB Int : 428 ms Poor data quality, interpretation may be adversely affected Normal sinus rhythm Normal ECG No previous ECGs available Referred By: Seda Resendez Electronically Signed By: Chang Landa
[2025-03-06 16:19] LABS: Glucose, Whole Blood 130 mg/dL (60-115)
[2025-03-06 20:00] VITALS: BP 112/67; PULSE 88; RESP 15; TEMP 36.9; O2SAT 98
[2025-03-06 21:46] LABS: Glucose, Whole Blood 174 mg/dL (60-115)
--- NOTE | 2025-03-06 23:27 | HO.PSYCHPN ---
Subjective Subjective Date of Service: 03/06/25 Reason For Visit: SI with plan Subjective Notes: Conditional Voluntary Healthcare Proxy: No Guardianship: No Medical Problems Affecting Mental Status: No Interim History: Medical record and nursing notes reviewed; case discussed during rounds with team/nursing staff, and met with patient for supportive therapy/psychoeducation, as well as medication management. Meet with patient in assigned room where he is eating breakfast. Continue to report passive SI with SIB as usual at baseline. However, he does not bite his skin/arms during encounter. Report no HI/AVH. Denies side effects from meds. slept well and has been eating well. Per nursing, patient slept for 8. Report chest pain comes and goes. Report hx of same experience once in a while. Do not know what works in the past to take the pain away. Asymptomatic. No sign or symptoms of distress or SOB, does not appear to be in pain. No change in circulation. No sweating. Will continue to monitor. Will order EKG to rule out any cardiac issues related to meds changes. Got flu vaccine yesterday on admission. Medication Compliance: Yes Side effects from medications: No Review of Systems Acute medical concerns: No Medical Review of Systems: unchanged Review of Systems Review of Systems Denies any shortness of breath, chest pain, palpitations, dizziness, lightheadedness, headaches, dysuria, abdominal pain or discomfort, nausea, vomiting or diarrhea. Denies chills, body aches, muscle aches, fatigue or weight loss. Some bites moeller from SIB on arms/wrist covered. Report chest pain with no physcial symptoms. Will contineu to monitor Mental Status Exam Mental Status Exam Narrative: Patient is A+Ox3, wearing casual attire, appear relax, no unsafe behavior. not biting on skin. Speech is WNL, concrete, not wordy. Thought process is organized, concrete and limited. Improved in sleep and appetite.. Fair eye contact but mostly not direct eye contact. Thought content with passive SI and SIB. Not appear to be psychotic. Do not make any delusional or paranoid statements. fair judgment and insight. Continue to be on 15 minute checks for safety.. No 1-1 or 5 min check needed. Diagnostics Vital Signs (24Hr): Vital Signs - 24 hr 03/06/25 08:04 03/06/25 20:00 Temperature 97.6 F 98.4 F Pulse Rate 70 88 Respiratory Rate 16 15 Blood Pressure 131/78 112/67 Pulse Oximetry 97 98 Oxygen Delivery Method Room Air BMI result Body Mass Index 31.5 Labs 03/05/25 09:53 Labs: Laboratory Results - last 48 hr 03/05/25 03/05/25 03/05/25 08:38 09:53 16:12 Sodium 139 Potassium 4.4 Chloride 108 Carbon Dioxide 23 Anion Gap 12 BUN 23 H Creatinine 1.17 Estim Creat Clear Calc 97.2 Estimated GFR > 60 POC Glucose 134 H 186 H Random Glucose 179 H Estimat Average Glucose 134 Hemoglobin A1c % 6.3 H Calcium 10.1 Magnesium 1.5 L Total Bilirubin 0.3 AST 23 ALT 19 Alkaline Phosphatase 107 Total Protein 8.2 H Albumin 4.5 Triglycerides 134 Cholesterol 161 LDL Cholesterol, Calc 78 HDL Cholesterol 57 Vitamin B12 310 Folate 8.1 TSH 1.49 Free T4 1.00 03/05/25 03/06/25 03/06/25 20:35 08:12 11:44 Sodium Potassium Chloride Carbon Dioxide Anion Gap BUN Creatinine Estim Creat Clear Calc Estimated GFR POC Glucose 161 H 120 H 207 H Random Glucose Estimat Average Glucose Hemoglobin A1c % Calcium Magnesium Total Bilirubin AST ALT Alkaline Phosphatase Total Protein Albumin Triglycerides Cholesterol LDL Cholesterol, Calc HDL Cholesterol Vitamin B12 Folate TSH Free T4 03/06/25 03/06/25 16:14 21:41 Sodium Potassium Chloride Carbon Dioxide Anion Gap BUN Creatinine Estim Creat Clear Calc Estimated GFR POC Glucose 130 H 174 H Random Glucose Estimat Average Glucose Hemoglobin A1c % Calcium Magnesium Total Bilirubin AST ALT Alkaline Phosphatase Total Protein Albumin Triglycerides Cholesterol LDL Cholesterol, Calc HDL Cholesterol Vitamin B12 Folate TSH Free T4 Medications Medications Current Medications Acetaminophen (Acetaminophen 325 Mg Tablet) 650 mg PO Q6H PRN PRN Reason: Headache/Pain, Scale 1-10 Last Admin: 03/06/25 12:46 Dose: 650 mg Al Hydroxide/Mg Hydroxide (Magnesium Hydrox/Alum Hydrox 30 Ml Oral.Susp) 30 ml PO Q6H PRN PRN Reason: Heartburn/Nausea Amlodipine Besylate (Amlodipine Besylate 5 Mg Tablet) 5 mg PO DAILY [facility]; Protocol Last Admin: 03/06/25 08:56 Dose: 5 mg Dextrose (Dextrose 50 % 25 Gm/50 Ml Syringe) 25 gm IVPUSH Q15M PRN; Protocol PRN Reason: per Hypoglycemia Standing Ord. Gabapentin (Gabapentin 400 Mg Capsule) 400 mg PO TID [facility] Last Admin: 03/06/25 21:50 Dose: 400 mg Glucose (Glucose Gel 15 Gm Gel..Gram.) 15 gm PO Q15M PRN; Protocol PRN Reason: per Hypoglycemia Standing Ord. Hydroxyzine HCl (Hydroxyzine Hcl 25 Mg Tablet) 25 mg PO Q6H PRN PRN Reason: mild anxiety Last Admin: 03/06/25 21:55 Dose: 25 mg Insulin Human Lispro (Insulin Lispro 100 Unit/Ml 3 Ml Vial) 0 unit SUBCUT QIDACHS [facility]; Protocol Last Admin: 03/06/25 21:50 Dose: 2 unit Magnesium Hydroxide (Milk Of Magnesia 30 Ml Oral.Susp) 30 ml PO DAILY PRN PRN Reason: Constipation Last Admin: 03/06/25 12:45 Dose: 30 ml Metformin HCl (Metformin Hcl 500 Mg Tablet) 500 mg PO BIDWM [facility] Last Admin: 03/06/25 17:39 Dose: 500 mg Nicotine (Nicotine 21 Mg Patch.Td24) 21 mg TRANSDERMA DAILY PRN PRN Reason: nicotine craving Nicotine Polacrilex (Nicotine Polacrilex 2 Mg Gum) 2 mg BUCCAL Q2H PRN PRN Reason: Nicotine Cravings Quetiapine Fumarate (Quetiapine Fumarate 50 Mg Tablet) 50 mg PO BEDTIME [facility] Last Admin: 03/06/25 21:50 Dose: 50 mg Quetiapine Fumarate (Quetiapine Fumarate 25 Mg Tablet) 25 mg PO BID PRN PRN Reason: agitation/severe anxiety Last Admin: 03/06/25 21:55 Dose: 25 mg Sertraline HCl (Sertraline Hcl 50 Mg Tablet) 50 mg PO DAILY [facility] Last Admin: 03/06/25 08:56 Dose: 50 mg Trazodone HCl (Trazodone Hcl 50 Mg Tablet) 50 mg PO BEDTIME MRX1 PRN PRN Reason: Insomnia Last Admin: 03/06/25 23:18 Dose: 50 mg Allergies Allergies Allergy/AdvReac Type Severity Reaction Status Date / Time Penicillins (PCN) AdvReac Unknown Unknown Unverified 03/04/25 19:21 Assessment & Plan Assessment & Plan (1) Depression, unspecified: Status: Acute Code(s): F32.A - Depression, unspecified (2) Insulin dependent type 2 diabetes mellitus: Status: Acute Code(s): E11.9 - Type 2 diabetes mellitus without complications; Z79.4 - prison (current) use of insulin (3) HTN (hypertension): Status: Acute Code(s): I10 - Essential (primary) hypertension Plan HPI: Patient is is 54 years old single Khmer-speaking male with history of depression, diabetes type 2, GERD, and hypertension presents to the hospital for suicidal thoughts with plan to stab himself. Patient was BIBA the reporting SI to police. Patient was agitated upon arrival and was required physical restraints. He was just discharged from [facility] hospital 03/03. History of numerous hospitalizations, being homeless. He does not want to stay at the shelters. Per discharge note from previous admission, patient was planning to go to [place] to stay with a friend but the plan did not work out. Formulation/clinical reasoning: Homeless, more compliant with treatment, noncompliant with medications after discharge, making conditional suicidal statements, he will kill himself with a knife which is available, do not feel safe in community, no outpatient providers, limited supports in community. Current time, does not feel safe in the hospital neither. Even the above information, patient would be benefit in restrictive environment for his own safety, medication management, and refer patient to Psychiatric Services for aftercare. Hospital course: 03/05/25: Discussed with patient regarding medication. Reported that he has not taking medication for 6 months- which was not consistent with ED reports he was in the and was just discharged a couple of days ago. Able to recall some of his own medications. Start Seroquel 50 at bedtime with b.i.d. p.r.n. for agitation/severe anxiety Zoloft 50 mg once daily in the morning for depression/anxiety Melatonin 6 mg at bedtime for insomnia Gabapentin 400 t.i.d. for nerve pain on legs. Metformin 500 twice a day for diabetes Point of care q.i.d. per diabetic protocol. Amlodipine 5 mg daily in the morning. Patient good like to have flu vaccine. 03/06/25: Meet with patient in assigned room where he is eating breakfast. Continue to report passive SI with SIB as usual at baseline. However, he does not bite his skin/arms during encounter. Report no HI/AVH. Denies side effects from meds. slept well and has been eating well. Per nursing, patient slept for 8. Report chest pain comes and goes. Report hx of same experience once in a while. Do not know what works in the past to take the pain away. Asymptomatic. No sign or symptoms of distress or SOB, does not appear to be in pain. No change in circulation. No sweating. Will continue to monitor. Will order EKG to rule out any cardiac issues related to meds changes. Got flu vaccine yesterday on admission. Plan Patient on 15 minute checks for safety. Initiate behavioral plan not able to remain safe during 15 minute checks. Admitted to [facility]. Work with treatment team to do collateral. No current outpatient psychiatric services/therapist Contact the hospitalist regarding hospitalist consultation on admission: seen. Patient bite jamin on his right wrist from repeatedly biting himself. No evidence of redness, warmth, or drainage noted. ? Borderline personality disorder. Patient educated on: diagnosis, medication risk/benefits, substance abuse and therapeutic strategies Informed Consent: understands and further education needed Reason for continued inpatient stay Substantial Risk for: med/psych decompensation Time Spent With Patient Time: Total time managing care of this patient today ____ minutes.
[2025-03-07 08:02] LABS: Glucose, Whole Blood 118 mg/dL (60-115)
[2025-03-07 10:37] VITALS: BP 107/61; PULSE 67; RESP 14; TEMP 2.4; TEMP 36.4; O2SAT 97
[2025-03-07 12:18] LABS: Glucose, Whole Blood 169 mg/dL (60-115)
[2025-03-07 17:11] LABS: Glucose, Whole Blood 190 mg/dL (60-115)
--- NOTE | 2025-03-07 19:21 | HO.PSYCHPN ---
Subjective Subjective Date of Service: 03/07/25 Reason For Visit: SI with plan Subjective Notes: Estrella Warning and Conditional Voluntary Healthcare Proxy: No Guardianship: No Medical Problems Affecting Mental Status: No Interim History: Medical record and nursing notes reviewed; case discussed during rounds with team/nursing staff, and met with patient for supportive therapy/psychoeducation, as well as medication management. Meet with patient in assigned room. Remain in bed after breakfast not yet taking AM scheduled meds. Reports no issues with sleep or appetite. Patient says I bit myself last night . I still want to hurt myself . Remind patient and list coping skills that he can use to distract himself with healthier ways to express himself. Denies anxiety but report a little depressed, rated it a 5/10. Denies AVH. Patient also meets with SW later denies SI at that time during assessment. Compliant with meds, denies side effects. Discuss with patient regarding increasing in Zoloft for anxiety/depressed. Patient mostly keeps to self, visible sometimes but not a social person. No pain, no chest pain. Reviewed EKG result with patient. Medication Compliance: Yes Side effects from medications: No Attending Groups: No Review of Systems Acute medical concerns: No Medical Review of Systems: unchanged Review of Systems Review of Systems Denies any shortness of breath, chest pain, palpitations, dizziness, lightheadedness, headaches, dysuria, abdominal pain or discomfort, nausea, vomiting or diarrhea. Denies chills, body aches, muscle aches, fatigue or weight loss. Some bites moeller from SIB on arms/wrist, covered, no active bleeding. No chest pain. Mental Status Exam Mental Status Exam Narrative: Patient is A+Ox3, wearing casual attire, appear relax, no unsafe behavior. not biting on skin during assessment. Speech is WNL, concrete, not wordy. Thought process is organized, concrete and limited. Improved in sleep and appetite.. Fair eye contact but mostly not direct eye contact. Thought content with SI and SIB. Not appear to be psychotic. Do not make any delusional or paranoid statements. fair judgment and insight. Continue to be on 15 minute checks for safety.. No 1-1 or 5 min check needed. Diagnostics Vital Signs (24Hr): Vital Signs - 24 hr 03/06/25 20:00 03/07/25 10:37 Temperature 98.4 F 36.4 F L Pulse Rate 88 67 Respiratory Rate 15 14 Blood Pressure 112/67 107/61 Pulse Oximetry 98 97 Oxygen Delivery Method Room Air BMI result Body Mass Index 31.5 Labs 03/05/25 09:53 Labs: Laboratory Results - last 48 hr 03/05/25 03/06/25 03/06/25 20:35 08:12 11:44 POC Glucose 161 H 120 H 207 H 03/06/25 03/06/25 03/07/25 16:14 21:41 07:58 POC Glucose 130 H 174 H 118 H 03/07/25 03/07/25 12:13 17:07 POC Glucose 169 H 190 H Medications Medications Current Medications Acetaminophen (Acetaminophen 325 Mg Tablet) 650 mg PO Q6H PRN PRN Reason: Headache/Pain, Scale 1-10 Last Admin: 03/06/25 12:46 Dose: 650 mg Al Hydroxide/Mg Hydroxide (Magnesium Hydrox/Alum Hydrox 30 Ml Oral.Susp) 30 ml PO Q6H PRN PRN Reason: Heartburn/Nausea Amlodipine Besylate (Amlodipine Besylate 5 Mg Tablet) 5 mg PO DAILY [facility]; Protocol Last Admin: 03/07/25 10:41 Dose: 5 mg Dextrose (Dextrose 50 % 25 Gm/50 Ml Syringe) 25 gm IVPUSH Q15M PRN; Protocol PRN Reason: per Hypoglycemia Standing Ord. Gabapentin (Gabapentin 400 Mg Capsule) 400 mg PO TID [facility] Last Admin: 03/07/25 14:09 Dose: 400 mg Glucose (Glucose Gel 15 Gm Gel..Gram.) 15 gm PO Q15M PRN; Protocol PRN Reason: per Hypoglycemia Standing Ord. Hydroxyzine HCl (Hydroxyzine Hcl 25 Mg Tablet) 25 mg PO Q6H PRN PRN Reason: mild anxiety Last Admin: 03/06/25 21:55 Dose: 25 mg Insulin Human Lispro (Insulin Lispro 100 Unit/Ml 3 Ml Vial) 0 unit SUBCUT QIDACHS [facility]; Protocol Last Admin: 03/07/25 17:37 Dose: 2 unit Magnesium Hydroxide (Milk Of Magnesia 30 Ml Oral.Susp) 30 ml PO DAILY PRN PRN Reason: Constipation Last Admin: 03/06/25 12:45 Dose: 30 ml Metformin HCl (Metformin Hcl 500 Mg Tablet) 500 mg PO BIDWM [facility] Last Admin: 03/07/25 17:37 Dose: 500 mg Nicotine (Nicotine 21 Mg Patch.Td24) 21 mg TRANSDERMA DAILY PRN PRN Reason: nicotine craving Nicotine Polacrilex (Nicotine Polacrilex 2 Mg Gum) 2 mg BUCCAL Q2H PRN PRN Reason: Nicotine Cravings Quetiapine Fumarate (Quetiapine Fumarate 50 Mg Tablet) 50 mg PO BEDTIME [facility] Last Admin: 03/06/25 21:50 Dose: 50 mg Quetiapine Fumarate (Quetiapine Fumarate 25 Mg Tablet) 25 mg PO BID PRN PRN Reason: agitation/severe anxiety Last Admin: 03/06/25 21:55 Dose: 25 mg Sertraline HCl (Sertraline Hcl 100 Mg Tablet) 100 mg PO DAILY [facility] Trazodone HCl (Trazodone Hcl 50 Mg Tablet) 50 mg PO BEDTIME MRX1 PRN PRN Reason: Insomnia Last Admin: 03/06/25 23:18 Dose: 50 mg Allergies Allergies Allergy/AdvReac Type Severity Reaction Status Date / Time Penicillins (PCN) AdvReac Unknown Unknown Unverified 03/04/25 19:21 Assessment & Plan Assessment & Plan (1) Depression, unspecified: Status: Acute Code(s): F32.A - Depression, unspecified (2) Insulin dependent type 2 diabetes mellitus: Status: Acute Code(s): E11.9 - Type 2 diabetes mellitus without complications; Z79.4 - shelter (current) use of insulin (3) HTN (hypertension): Status: Acute Code(s): I10 - Essential (primary) hypertension Plan HPI: Patient is is 54 years old single Pakistani-speaking male with history of depression, diabetes type 2, GERD, and hypertension presents to the hospital for suicidal thoughts with plan to stab himself. Patient was BIBA the reporting SI to police. Patient was agitated upon arrival and was required physical restraints. He was just discharged from [facility] 03/03. History of numerous hospitalizations, being homeless. He does not want to stay at the shelters. Per discharge note from previous admission, patient was planning to go to [place] to stay with a friend but the plan did not work out. Formulation/clinical reasoning: Homeless, more compliant with treatment, noncompliant with medications after discharge, making conditional suicidal statements, he will kill himself with a knife which is available, do not feel safe in community, no outpatient providers, limited supports in community. Current time, does not feel safe in the hospital neither. Even the above information, patient would be benefit in restrictive environment for his own safety, medication management, and refer patient to Psychiatric Services for aftercare. Hospital course: 03/05/25: Discussed with patient regarding medication. Reported that he has not taking medication for 6 months- which was not consistent with ED reports he was in the IP and was just discharged a couple of days ago. Able to recall some of his own medications. Start Seroquel 50 at bedtime with b.i.d. p.r.n. for agitation/severe anxiety Zoloft 50 mg once daily in the morning for depression/anxiety Melatonin 6 mg at bedtime for insomnia Gabapentin 400 t.i.d. for nerve pain on legs. Metformin 500 twice a day for diabetes Point of care q.i.d. per diabetic protocol. Amlodipine 5 mg daily in the morning. Patient good like to have flu vaccine. 03/06/25: Meet with patient in assigned room where he is eating breakfast. Continue to report passive SI with SIB as usual at baseline. However, he does not bite his skin/arms during encounter. Report no HI/AVH. Denies side effects from meds. slept well and has been eating well. Per nursing, patient slept for 8. Report chest pain comes and goes. Report hx of same experience once in a while. Do not know what works in the past to take the pain away. Asymptomatic. No sign or symptoms of distress or SOB, does not appear to be in pain. No change in circulation. No sweating. Will continue to monitor. Will order EKG to rule out any cardiac issues related to meds changes. Got flu vaccine yesterday on admission. 03/07/25: Meet with patient in assigned room. Remain in bed after breakfast not yet taking AM scheduled meds. Reports no issues with sleep or appetite. Patient says I bit myself last night . I still want to hurt myself . Remind patient and list coping skills that he can use to distract himself with healthier ways to express himself. Denies anxiety but report a little depressed, rated it a 5/10. Denies AVH. Patient also meets with SW later denies SI at that time during assessment. Compliant with meds, denies side effects. Discuss with patient regarding increasing in Zoloft for anxiety/depressed. Patient mostly keeps to self, visible sometimes but not a social person. No pain, no chest pain. Reviewed EKG result with patient. Increase Zoloft up to 100mg for anxiety/depression. Plan Patient on 15 minute checks for safety. Initiate behavioral plan not able to remain safe during 15 minute checks. Admitted to . CV. Work with treatment team to do collateral. No current outpatient psychiatric services/therapist Contact the hospitalist regarding hospitalist consultation on admission: seen. Patient bite jamin on his right wrist from repeatedly biting himself. No evidence of redness, warmth, or drainage noted. ? Borderline personality disorder. Patient educated on: diagnosis, medication risk/benefits and therapeutic strategies Informed Consent: understands and further education needed Reason for continued inpatient stay Substantial Risk for: med/psych decompensation Time Spent With Patient Time: Total time managing care of this patient today ____ minutes.
[2025-03-07 19:44] VITALS: BP 108/62; PULSE 88; RESP 18; TEMP 37.1; O2SAT 95
[2025-03-07 20:11] LABS: Glucose, Whole Blood 136 mg/dL (60-115)
[2025-03-08 07:55] LABS: Glucose, Whole Blood 199 mg/dL (60-115)
[2025-03-08 08:00] VITALS: BP 107/61; PULSE 76; RESP 16; TEMP 36.8; O2SAT 96
[2025-03-08 12:10] LABS: Glucose, Whole Blood 145 mg/dL (60-115)
[2025-03-08 16:31] LABS: Glucose, Whole Blood 214 mg/dL (60-115)
[2025-03-08] MEDS: Magnesium Hydrox/Alum Hydrox 30 ML ORAL.SUSP PO (16:45)
[2025-03-08 19:36] VITALS: BP 100/54; PULSE 79; RESP 20; TEMP 36.9; O2SAT 93
[2025-03-08 20:09] LABS: Glucose, Whole Blood 184 mg/dL (60-115)
--- NOTE | 2025-03-08 23:17 | HO.PSYCHPN ---
Subjective Subjective Date of Service: 03/08/25 Reason For Visit: SI with plan Subjective Notes: Conditional Voluntary Healthcare Proxy: No Guardianship: No Medical Problems Affecting Mental Status: No Interim History: Medical record and nursing notes reviewed; case discussed during rounds with team/nursing staff, and met with patient for supportive therapy/psychoeducation, as well as medication management. Met with patient in, he cover his face with the blanket. Reports seeing black shadows which he scares and cover his face as they tried to attack . No SI be observed the encounter. Wearing the same clothes as on the 1st day he came. Reports shower yesterday. He attempted to this morning when assigned RN encouraged him to do so. Denies voices. Not express suicidal thoughts. Not biting self encounter. Per nursing, patient slept for 8 hours, no side effects. Medication compliant. No appetite issues. Patient agreed to have Seroquel increased up to 100 mg at bedtime for hallucinations. Medication Compliance: Yes Side effects from medications: No Attending Groups: Intermittent Review of Systems Acute medical concerns: No Medical Review of Systems: unchanged Review of Systems Review of Systems Denies any shortness of breath, chest pain, palpitations, dizziness, lightheadedness, headaches, dysuria, abdominal pain or discomfort, nausea, vomiting or diarrhea. Denies chills, body aches, muscle aches, fatigue or weight loss. Some bites moeller from SIB on arms/wrist, covered, no active bleeding. No chest pain. Mental Status Exam Mental Status Exam Narrative: Patient is A+Ox3, wearing casual attire, appear relax, no unsafe behavior. not biting on skin during assessment. Speech is WNL, concrete, not wordy. Thought process is organized, concrete and limited. Improved in sleep and appetite.. Fair eye contact but mostly not direct eye contact.. Not appear to be psychotic. Do not make any delusional or paranoid statements but report VH of shadow.. fair judgment and insight. Continue to be on 15 minute checks for safety.. No 1-1 or 5 min check needed. Diagnostics Vital Signs (24Hr): Vital Signs - 24 hr 03/08/25 08:00 03/08/25 19:36 Temperature 98.2 F 98.4 F Pulse Rate 76 79 Respiratory Rate 16 20 Blood Pressure 107/61 100/54 L Pulse Oximetry 96 93 Oxygen Delivery Method Room Air Room Air BMI result Body Mass Index 31.5 Labs 03/05/25 09:53 Labs: Laboratory Results - last 48 hr 03/07/25 03/07/25 03/07/25 07:58 12:13 17:07 POC Glucose 118 H 169 H 190 H 03/07/25 03/08/25 03/08/25 20:06 07:50 12:07 POC Glucose 136 H 199 H 145 H 03/08/25 03/08/25 16:26 20:05 POC Glucose 214 H 184 H Medications Medications Current Medications Acetaminophen (Acetaminophen 325 Mg Tablet) 650 mg PO Q6H PRN PRN Reason: Headache/Pain, Scale 1-10 Last Admin: 03/06/25 12:46 Dose: 650 mg Al Hydroxide/Mg Hydroxide (Magnesium Hydrox/Alum Hydrox 30 Ml Oral.Susp) 30 ml PO Q6H PRN PRN Reason: Heartburn/Nausea Last Admin: 03/08/25 16:45 Dose: 30 ml Amlodipine Besylate (Amlodipine Besylate 5 Mg Tablet) 5 mg PO DAILY [facility]; Protocol Last Admin: 03/08/25 08:33 Dose: 5 mg Dextrose (Dextrose 50 % 25 Gm/50 Ml Syringe) 25 gm IVPUSH Q15M PRN; Protocol PRN Reason: per Hypoglycemia Standing Ord. Docusate Sodium (Docusate Sodium 100 Mg Capsule) 100 mg PO BID [facility] Last Admin: 03/08/25 21:56 Dose: 100 mg Gabapentin (Gabapentin 400 Mg Capsule) 400 mg PO TID [facility] Last Admin: 03/08/25 21:56 Dose: 400 mg Glucose (Glucose Gel 15 Gm Gel..Gram.) 15 gm PO Q15M PRN; Protocol PRN Reason: per Hypoglycemia Standing Ord. Hydroxyzine HCl (Hydroxyzine Hcl 25 Mg Tablet) 25 mg PO Q6H PRN PRN Reason: mild anxiety Last Admin: 03/08/25 21:56 Dose: 25 mg Insulin Human Lispro (Insulin Lispro 100 Unit/Ml 3 Ml Vial) 0 unit SUBCUT QIDACHS [facility]; Protocol Last Admin: 03/08/25 21:57 Dose: 2 unit Magnesium Hydroxide (Milk Of Magnesia 30 Ml Oral.Susp) 30 ml PO DAILY PRN PRN Reason: Constipation Last Admin: 03/06/25 12:45 Dose: 30 ml Metformin HCl (Metformin Hcl 500 Mg Tablet) 500 mg PO BIDWM [facility] Last Admin: 03/08/25 16:45 Dose: 500 mg Nicotine (Nicotine 21 Mg Patch.Td24) 21 mg TRANSDERMA DAILY PRN PRN Reason: nicotine craving Nicotine Polacrilex (Nicotine Polacrilex 2 Mg Gum) 2 mg BUCCAL Q2H PRN PRN Reason: Nicotine Cravings Quetiapine Fumarate (Quetiapine Fumarate 25 Mg Tablet) 25 mg PO BID PRN PRN Reason: agitation/severe anxiety Last Admin: 03/08/25 21:56 Dose: 25 mg Quetiapine Fumarate (Quetiapine Fumarate 100 Mg Tablet) 100 mg PO BEDTIME [facility] Last Admin: 03/08/25 21:56 Dose: 100 mg Sertraline HCl (Sertraline Hcl 100 Mg Tablet) 100 mg PO DAILY [facility] Last Admin: 03/08/25 08:33 Dose: 100 mg Trazodone HCl (Trazodone Hcl 50 Mg Tablet) 50 mg PO BEDTIME MRX1 PRN PRN Reason: Insomnia Last Admin: 03/08/25 21:56 Dose: 50 mg Allergies Allergies Allergy/AdvReac Type Severity Reaction Status Date / Time Penicillins (PCN) AdvReac Unknown Unknown Unverified 03/04/25 19:21 Assessment & Plan Assessment & Plan (1) Depression, unspecified: Status: Acute Code(s): F32.A - Depression, unspecified (2) Insulin dependent type 2 diabetes mellitus: Status: Acute Code(s): E11.9 - Type 2 diabetes mellitus without complications; Z79.4 - jail (current) use of insulin (3) HTN (hypertension): Status: Acute Code(s): I10 - Essential (primary) hypertension Plan HPI: Patient is is 54 years old single Cameroonian-speaking male with history of depression, diabetes type 2, GERD, and hypertension presents to the hospital for suicidal thoughts with plan to stab himself. Patient was BIBA the reporting SI to police. Patient was agitated upon arrival and was required physical restraints. He was just discharged from [facility] 03/03. History of numerous hospitalizations, being homeless. He does not want to stay at the shelters. Per discharge note from previous admission, patient was planning to go to [place] to stay with a friend but the plan did not work out. Formulation/clinical reasoning: Homeless, more compliant with treatment, noncompliant with medications after discharge, making conditional suicidal statements, he will kill himself with a knife which is available, do not feel safe in community, no outpatient providers, limited supports in community. Current time, does not feel safe in the hospital neither. Even the above information, patient would be benefit in restrictive environment for his own safety, medication management, and refer patient to Psychiatric Services for aftercare. Hospital course: 03/05/25: Discussed with patient regarding medication. Reported that he has not taking medication for 6 months- which was not consistent with ED reports he was in the IP and was just discharged a couple of days ago. Able to recall some of his own medications. Start Seroquel 50 at bedtime with b.i.d. p.r.n. for agitation/severe anxiety Zoloft 50 mg once daily in the morning for depression/anxiety Melatonin 6 mg at bedtime for insomnia Gabapentin 400 t.i.d. for nerve pain on legs. Metformin 500 twice a day for diabetes Point of care q.i.d. per diabetic protocol. Amlodipine 5 mg daily in the morning. Patient good like to have flu vaccine. 03/06/25: Meet with patient in assigned room where he is eating breakfast. Continue to report passive SI with SIB as usual at baseline. However, he does not bite his skin/arms during encounter. Report no HI/AVH. Denies side effects from meds. slept well and has been eating well. Per nursing, patient slept for 8. Report chest pain comes and goes. Report hx of same experience once in a while. Do not know what works in the past to take the pain away. Asymptomatic. No sign or symptoms of distress or SOB, does not appear to be in pain. No change in circulation. No sweating. Will continue to monitor. Will order EKG to rule out any cardiac issues related to meds changes. Got flu vaccine yesterday on admission. 03/07/25: Meet with patient in assigned room. Remain in bed after breakfast not yet taking AM scheduled meds. Reports no issues with sleep or appetite. Patient says I bit myself last night . I still want to hurt myself . Remind patient and list coping skills that he can use to distract himself with healthier ways to express himself. Denies anxiety but report a little depressed, rated it a 5/10. Denies AVH. Patient also meets with SW later denies SI at that time during assessment. Compliant with meds, denies side effects. Discuss with patient regarding increasing in Zoloft for anxiety/depressed. Patient mostly keeps to self, visible sometimes but not a social person. No pain, no chest pain. Reviewed EKG result with patient. Increase Zoloft up to 100mg for anxiety/depression. 03/08/25: Met with patient in, he cover his face with the blanket. Reports seeing black shadows which he scares and cover his face as they tried to attack . No SI be observed the encounter. Wearing the same clothes as on the 1st day he came. Reports shower yesterday. He attempted to this morning when assigned RN encouraged him to do so. Denies voices. Not express suicidal thoughts. Not biting self encounter. Per nursing, patient slept for 8 hours, no side effects. Medication compliant. No appetite issues. Patient agreed to have Seroquel increased up to 100 mg at bedtime for hallucinations. Plan Patient on 15 minute checks for safety. Initiate behavioral plan not able to remain safe during 15 minute checks. Admitted to [facility]. CV. Work with treatment team to do collateral. No current outpatient psychiatric services/therapist Contact the hospitalist regarding hospitalist consultation on admission: seen. Patient bite jamin on his right wrist from repeatedly biting himself. No evidence of redness, warmth, or drainage noted. ? Borderline personality disorder. Patient educated on: diagnosis, medication risk/benefits, substance abuse and therapeutic strategies Informed Consent: understands and further education needed Reason for continued inpatient stay Substantial Risk for: med/psych decompensation Time Spent With Patient Time: Total time managing care of this patient today ____ minutes.
[2025-03-09 07:59] VITALS: BP 118/65; PULSE 70; RESP 16; TEMP 36.3; O2SAT 95
[2025-03-09 08:04] LABS: Glucose, Whole Blood 124 mg/dL (60-115)
[2025-03-09 11:59] LABS: Glucose, Whole Blood 147 mg/dL (60-115)
[2025-03-09 16:36] LABS: Glucose, Whole Blood 164 mg/dL (60-115)
[2025-03-09] MEDS: Milk of Magnesia 30 ML ORAL.SUSP PO (17:04)
[2025-03-09 19:46] VITALS: BP 112/56; PULSE 75; TEMP 36.8; O2SAT 94
[2025-03-09 21:06] LABS: Glucose, Whole Blood 190 mg/dL (60-115)
--- NOTE | 2025-03-09 21:44 | HO.PSYCHPN ---
Subjective Subjective Date of Service: 03/09/25 Reason For Visit: SI with plan Subjective Notes: Conditional Voluntary Healthcare Proxy: No Guardianship: No Medical Problems Affecting Mental Status: No Interim History: Medical record and nursing notes reviewed; case discussed during rounds with team/nursing staff, and met with patient for supportive therapy/psychoeducation, as well as medication management. Patient reports no SI/SIB today for the first time. Also denies VH of shadows but report stomach pain. He cannot explain exactly symptoms. GI issues could be side effects from Sertraline which recently started and current dose is at 100mg daily. Explained and educated patient again regarding this side effects and will continue to monitor. Report he has not yet had BM with colace and MOM. Start on Senna 17.2mg daily at HS. Continue to monitor for BM and GI issues. Patient showered, got laundry done, visible in the rouse, went to one group yesterday but says he did not go to any groups just yet. Patient slept for 8 hours and compliant with medication. Less anxious, less depressed, more pleasant. Continue with current tx plan. Medication Compliance: Yes Side effects from medications: Yes (stomach pain ) Attending Groups: No Review of Systems Acute medical concerns: No Medical Review of Systems: unchanged Review of Systems Review of Systems Denies any shortness of breath, chest pain, palpitations, dizziness, lightheadedness, headaches, dysuria, nausea, vomiting or diarrhea. Denies chills, body aches, muscle aches, fatigue or weight loss. Some bites moeller from SIB on arms/wrist, covered, no active bleeding. No chest pain. Report stomach pain. Mental Status Exam Mental Status Exam Narrative: Patient is A+Ox3, wearing casual attire, appear relax, no unsafe behavior. not biting on skin during assessment. Speech is WNL, concrete, not wordy. Thought process is organized, concrete and limited. Improved in sleep and appetite.. Fair eye contact. Not appear to be psychotic. Do not make any delusional or paranoid statements, denies SI/SIB/HI/AVH.. fair judgment and insight. Continue to be on 15 minute checks for safety.. No 1-1 or 5 min check needed. Diagnostics Vital Signs (24Hr): Vital Signs - 24 hr 03/09/25 07:59 03/09/25 19:46 Temperature 97.3 F 98.2 F Pulse Rate 70 75 Respiratory Rate 16 Blood Pressure 118/65 112/56 L Pulse Oximetry 95 94 Oxygen Delivery Method Room Air Room Air BMI result Body Mass Index 31.5 Labs 03/05/25 09:53 Labs: Laboratory Results - last 48 hr 03/08/25 03/08/25 03/08/25 07:50 12:07 16:26 POC Glucose 199 H 145 H 214 H 03/08/25 03/09/25 03/09/25 20:05 08:00 11:56 POC Glucose 184 H 124 H 147 H 03/09/25 03/09/25 16:31 20:32 POC Glucose 164 H 190 H Medications Medications Current Medications Acetaminophen (Acetaminophen 325 Mg Tablet) 650 mg PO Q6H PRN PRN Reason: Headache/Pain, Scale 1-10 Last Admin: 03/09/25 12:39 Dose: 650 mg Al Hydroxide/Mg Hydroxide (Magnesium Hydrox/Alum Hydrox 30 Ml Oral.Susp) 30 ml PO Q6H PRN PRN Reason: Heartburn/Nausea Last Admin: 03/08/25 16:45 Dose: 30 ml Amlodipine Besylate (Amlodipine Besylate 5 Mg Tablet) 5 mg PO DAILY [facility]; Protocol Last Admin: 03/09/25 08:23 Dose: 5 mg Dextrose (Dextrose 50 % 25 Gm/50 Ml Syringe) 25 gm IVPUSH Q15M PRN; Protocol PRN Reason: per Hypoglycemia Standing Ord. Docusate Sodium (Docusate Sodium 100 Mg Capsule) 100 mg PO BID [facility] Last Admin: 03/09/25 20:56 Dose: 100 mg Gabapentin (Gabapentin 400 Mg Capsule) 400 mg PO TID [facility] Last Admin: 03/09/25 20:56 Dose: 400 mg Glucose (Glucose Gel 15 Gm Gel..Gram.) 15 gm PO Q15M PRN; Protocol PRN Reason: per Hypoglycemia Standing Ord. Hydroxyzine HCl (Hydroxyzine Hcl 25 Mg Tablet) 25 mg PO Q6H PRN PRN Reason: mild anxiety Last Admin: 03/08/25 21:56 Dose: 25 mg Insulin Human Lispro (Insulin Lispro 100 Unit/Ml 3 Ml Vial) 0 unit SUBCUT QIDACHS [facility]; Protocol Last Admin: 03/09/25 20:56 Dose: 2 unit Magnesium Hydroxide (Milk Of Magnesia 30 Ml Oral.Susp) 30 ml PO DAILY PRN PRN Reason: Constipation Last Admin: 03/09/25 17:04 Dose: 30 ml Metformin HCl (Metformin Hcl 500 Mg Tablet) 500 mg PO BIDWM [facility] Last Admin: 03/09/25 17:03 Dose: 500 mg Nicotine (Nicotine 21 Mg Patch.Td24) 21 mg TRANSDERMA DAILY PRN PRN Reason: nicotine craving Nicotine Polacrilex (Nicotine Polacrilex 2 Mg Gum) 2 mg BUCCAL Q2H PRN PRN Reason: Nicotine Cravings Quetiapine Fumarate (Quetiapine Fumarate 25 Mg Tablet) 25 mg PO BID PRN PRN Reason: agitation/severe anxiety Last Admin: 03/08/25 21:56 Dose: 25 mg Quetiapine Fumarate (Quetiapine Fumarate 100 Mg Tablet) 100 mg PO BEDTIME [facility] Last Admin: 03/09/25 20:56 Dose: 100 mg Senna (Sennosides 8.6 Mg Tablet) 17.2 mg PO BEDTIME [facility] Last Admin: 03/09/25 20:56 Dose: 17.2 mg Sertraline HCl (Sertraline Hcl 100 Mg Tablet) 100 mg PO DAILY [facility] Last Admin: 03/09/25 08:23 Dose: 100 mg Trazodone HCl (Trazodone Hcl 50 Mg Tablet) 50 mg PO BEDTIME MRX1 PRN PRN Reason: Insomnia Last Admin: 03/08/25 21:56 Dose: 50 mg Allergies Allergies Allergy/AdvReac Type Severity Reaction Status Date / Time Penicillins (PCN) AdvReac Unknown Unknown Unverified 03/04/25 19:21 Assessment & Plan Assessment & Plan (1) Depression, unspecified: Status: Acute Code(s): F32.A - Depression, unspecified (2) Insulin dependent type 2 diabetes mellitus: Status: Acute Code(s): E11.9 - Type 2 diabetes mellitus without complications; Z79.4 - medical terminologist (current) use of insulin (3) HTN (hypertension): Status: Acute Code(s): I10 - Essential (primary) hypertension Plan HPI: Patient is is 54 years old single Romanian-speaking male with history of depression, diabetes type 2, GERD, and hypertension presents to the hospital for suicidal thoughts with plan to stab himself. Patient was BIBA the reporting SI to police. Patient was agitated upon arrival and was required physical restraints. He was just discharged from [facility] 03/03. History of numerous hospitalizations, being homeless. He does not want to stay at the shelters. Per discharge note from previous admission, patient was planning to go to [place] to stay with a friend but the plan did not work out. Formulation/clinical reasoning: Homeless, more compliant with treatment, noncompliant with medications after discharge, making conditional suicidal statements, he will kill himself with a knife which is available, do not feel safe in community, no outpatient providers, limited supports in community. Current time, does not feel safe in the hospital neither. Even the above information, patient would be benefit in restrictive environment for his own safety, medication management, and refer patient to Psychiatric Services for aftercare. Hospital course: 03/05/25: Discussed with patient regarding medication. Reported that he has not taking medication for 6 months- which was not consistent with ED reports he was in the IP and was just discharged a couple of days ago. Able to recall some of his own medications. Start Seroquel 50 at bedtime with b.i.d. p.r.n. for agitation/severe anxiety Zoloft 50 mg once daily in the morning for depression/anxiety Melatonin 6 mg at bedtime for insomnia Gabapentin 400 t.i.d. for nerve pain on legs. Metformin 500 twice a day for diabetes Point of care q.i.d. per diabetic protocol. Amlodipine 5 mg daily in the morning. Patient good like to have flu vaccine. 03/06/25: Meet with patient in assigned room where he is eating breakfast. Continue to report passive SI with SIB as usual at baseline. However, he does not bite his skin/arms during encounter. Report no HI/AVH. Denies side effects from meds. slept well and has been eating well. Per nursing, patient slept for 8. Report chest pain comes and goes. Report hx of same experience once in a while. Do not know what works in the past to take the pain away. Asymptomatic. No sign or symptoms of distress or SOB, does not appear to be in pain. No change in circulation. No sweating. Will continue to monitor. Will order EKG to rule out any cardiac issues related to meds changes. Got flu vaccine yesterday on admission. 03/07/25: Meet with patient in assigned room. Remain in bed after breakfast not yet taking AM scheduled meds. Reports no issues with sleep or appetite. Patient says I bit myself last night . I still want to hurt myself . Remind patient and list coping skills that he can use to distract himself with healthier ways to express himself. Denies anxiety but report a little depressed, rated it a 5/10. Denies AVH. Patient also meets with SW later denies SI at that time during assessment. Compliant with meds, denies side effects. Discuss with patient regarding increasing in Zoloft for anxiety/depressed. Patient mostly keeps to self, visible sometimes but not a social person. No pain, no chest pain. Reviewed EKG result with patient. Increase Zoloft up to 100mg for anxiety/depression. 03/08/25: Met with patient in, he cover his face with the blanket. Reports seeing black shadows which he scares and cover his face as they tried to attack . No SI be observed the encounter. Wearing the same clothes as on the 1st day he came. Reports shower yesterday. He attempted to this morning when assigned RN encouraged him to do so. Denies voices. Not express suicidal thoughts. Not biting self encounter. Per nursing, patient slept for 8 hours, no side effects. Medication compliant. No appetite issues. Patient agreed to have Seroquel increased up to 100 mg at bedtime for hallucinations. 03/09/25: Patient reports no SI/SIB today for the first time. Also denies VH of shadows but report stomach pain. He cannot explain exactly symptoms. GI issues could be side effects from Sertraline which recently started and current dose is at 100mg daily. Explained and educated patient again regarding this side effects and will continue to monitor. Report he has not yet had BM with colace and MOM. Start on Senna 17.2mg daily at HS. Continue to monitor for BM and GI issues. Patient showered, got laundry done, visible in the rouse, went to one group yesterday but says he did not go to any groups just yet. Patient slept for 8 hours and compliant with medication. Less anxious, less depressed, more pleasant. Continue with current tx plan. Plan Patient on 15 minute checks for safety. Admitted to [facility]. CV. Work with treatment team to do collateral. No current outpatient psychiatric services/therapist but has [facility] worker Contact the hospitalist regarding hospitalist consultation on admission: seen. Patient bite jamin on his right wrist from repeatedly biting himself. No evidence of redness, warmth, or drainage noted. ? Borderline personality disorder. Patient educated on: diagnosis, medication risk/benefits, substance abuse and therapeutic strategies Informed Consent: understands and further education needed Reason for continued inpatient stay Substantial Risk for: med/psych decompensation Time Spent With Patient Time: Total time managing care of this patient today ____ minutes.
[2025-03-10 07:51] LABS: Glucose, Whole Blood 156 mg/dL (60-115)
[2025-03-10 09:40] VITALS: BP 115/68; PULSE 66; RESP 16; TEMP 36.8; O2SAT 96
--- NOTE | 2025-03-10 09:43 | HO.PSYCHPN ---
Subjective Subjective Date of Service: 03/10/25 Reason For Visit: SI with plan Interim History: met with pt; discussed with team; reviewed chart Patient reports that he is doing better and feeling back to his regular self; denies any SI or HI and feels that depression is better. AVH fully resolved, not seeing any shadows and patient reports he is sleeping well. Block Chopper Hand reviewed medications with patient and he does not want any of the doses changed feeling they are adequate. Patient said that he is planning to return to the hotel where he has been living. Mental Status Exam Mental Status Exam Narrative: Pt is alert and oriented; behavior is mostly isolative, keeping to himself in his room but is cooperative on approach and calm, in good behavioral and impulse control, no self-injurious behaviors; patient is not in distress; dressed in hospital attire unkempt, hair pulled back in a ponytail; mood is described as better and affect congruent, more calm; eye contact appropriate; Speech is normal rate, volume and prosody and not pressured; some psychomotor retardation present; thought process is organized and goal directed; Thought content is on tx and discharge; otherwise pertinent to relevant topics and without any delusional content, paranoid ideations or grandiosity; denies any SI/HI. Denies AVH and there is no evidence of perceptual disturbance. Patients insight and judgment improved Diagnostics Vital Signs (24Hr): Vital Signs - 24 hr 03/09/25 19:46 03/10/25 09:40 Temperature 98.2 F 98.3 F Pulse Rate 75 66 Respiratory Rate 16 Blood Pressure 112/56 L 115/68 Pulse Oximetry 94 96 Oxygen Delivery Method Room Air Room Air BMI result Body Mass Index 31.5 Labs 03/12/25 07:59 Labs: Laboratory Results - last 48 hr 03/08/25 03/08/25 03/08/25 12:07 16:26 20:05 POC Glucose 145 H 214 H 184 H 03/09/25 03/09/25 03/09/25 08:00 11:56 16:31 POC Glucose 124 H 147 H 164 H 03/09/25 03/10/25 20:32 07:47 POC Glucose 190 H 156 H Medications Medications Current Medications Acetaminophen (Acetaminophen 325 Mg Tablet) 650 mg PO Q6H PRN PRN Reason: Headache/Pain, Scale 1-10 Last Admin: 03/09/25 12:39 Dose: 650 mg Al Hydroxide/Mg Hydroxide (Magnesium Hydrox/Alum Hydrox 30 Ml Oral.Susp) 30 ml PO Q6H PRN PRN Reason: Heartburn/Nausea Last Admin: 03/08/25 16:45 Dose: 30 ml Amlodipine Besylate (Amlodipine Besylate 5 Mg Tablet) 5 mg PO DAILY [facility]; Protocol Last Admin: 03/09/25 08:23 Dose: 5 mg Dextrose (Dextrose 50 % 25 Gm/50 Ml Syringe) 25 gm IVPUSH Q15M PRN; Protocol PRN Reason: per Hypoglycemia Standing Ord. Docusate Sodium (Docusate Sodium 100 Mg Capsule) 100 mg PO BID [facility] Last Admin: 03/09/25 20:56 Dose: 100 mg Gabapentin (Gabapentin 400 Mg Capsule) 400 mg PO TID [facility] Last Admin: 03/09/25 20:56 Dose: 400 mg Glucose (Glucose Gel 15 Gm Gel..Gram.) 15 gm PO Q15M PRN; Protocol PRN Reason: per Hypoglycemia Standing Ord. Hydroxyzine HCl (Hydroxyzine Hcl 25 Mg Tablet) 25 mg PO Q6H PRN PRN Reason: mild anxiety Last Admin: 03/08/25 21:56 Dose: 25 mg Insulin Human Lispro (Insulin Lispro 100 Unit/Ml 3 Ml Vial) 0 unit SUBCUT QIDACHS [facility]; Protocol Last Admin: 03/09/25 20:56 Dose: 2 unit Magnesium Hydroxide (Milk Of Magnesia 30 Ml Oral.Susp) 30 ml PO DAILY PRN PRN Reason: Constipation Last Admin: 03/09/25 17:04 Dose: 30 ml Metformin HCl (Metformin Hcl 500 Mg Tablet) 500 mg PO BIDWM [facility] Last Admin: 03/09/25 17:03 Dose: 500 mg Nicotine (Nicotine 21 Mg Patch.Td24) 21 mg TRANSDERMA DAILY PRN PRN Reason: nicotine craving Nicotine Polacrilex (Nicotine Polacrilex 2 Mg Gum) 2 mg BUCCAL Q2H PRN PRN Reason: Nicotine Cravings Quetiapine Fumarate (Quetiapine Fumarate 25 Mg Tablet) 25 mg PO BID PRN PRN Reason: agitation/severe anxiety Last Admin: 03/08/25 21:56 Dose: 25 mg Quetiapine Fumarate (Quetiapine Fumarate 100 Mg Tablet) 100 mg PO BEDTIME [facility] Last Admin: 03/09/25 20:56 Dose: 100 mg Senna (Sennosides 8.6 Mg Tablet) 17.2 mg PO BEDTIME [facility] Last Admin: 03/09/25 20:56 Dose: 17.2 mg Sertraline HCl (Sertraline Hcl 100 Mg Tablet) 100 mg PO DAILY [facility] Last Admin: 03/09/25 08:23 Dose: 100 mg Trazodone HCl (Trazodone Hcl 50 Mg Tablet) 50 mg PO BEDTIME MRX1 PRN PRN Reason: Insomnia Last Admin: 03/08/25 21:56 Dose: 50 mg Allergies Allergies Allergy/AdvReac Type Severity Reaction Status Date / Time Penicillins (PCN) AdvReac Unknown Unknown Unverified 03/04/25 19:21 Assessment & Plan Assessment & Plan (1) Depression, unspecified: Status: Acute Code(s): F32.A - Depression, unspecified (2) Insulin dependent type 2 diabetes mellitus: Status: Acute Code(s): E11.9 - Type 2 diabetes mellitus without complications; Z79.4 - skilled nursing (current) use of insulin (3) HTN (hypertension): Status: Acute Code(s): I10 - Essential (primary) hypertension Plan HPI: Patient is is 54 years old single Ethiopian-speaking male with history of depression, diabetes type 2, GERD, and hypertension presents to the hospital for suicidal thoughts with plan to stab himself. Patient was BIBA the reporting SI to police. Patient was agitated upon arrival and was required physical restraints. He was just discharged from [facility] 03/03. History of numerous hospitalizations, being homeless. He does not want to stay at the shelters. Per discharge note from previous admission, patient was planning to go to [place] to stay with a friend but the plan did not work out. Formulation/clinical reasoning: Homeless, more compliant with treatment, noncompliant with medications after discharge, making conditional suicidal statements, he will kill himself with a knife which is available, do not feel safe in community, no outpatient providers, limited supports in community. Current time, does not feel safe in the hospital neither. Even the above information, patient would be benefit in restrictive environment for his own safety, medication management, and refer patient to Psychiatric Services for aftercare. Hospital course: 03/05/25: Discussed with patient regarding medication. Reported that he has not taking medication for 6 months- which was not consistent with ED reports he was in the IP and was just discharged a couple of days ago. Able to recall some of his own medications. Start Seroquel 50 at bedtime with b.i.d. p.r.n. for agitation/severe anxiety Zoloft 50 mg once daily in the morning for depression/anxiety Melatonin 6 mg at bedtime for insomnia Gabapentin 400 t.i.d. for nerve pain on legs. Metformin 500 twice a day for diabetes Point of care q.i.d. per diabetic protocol. Amlodipine 5 mg daily in the morning. Patient good like to have flu vaccine. 03/06/25: Meet with patient in assigned room where he is eating breakfast. Continue to report passive SI with SIB as usual at baseline. However, he does not bite his skin/arms during encounter. Report no HI/AVH. Denies side effects from meds. slept well and has been eating well. Per nursing, patient slept for 8. Report chest pain comes and goes. Report hx of same experience once in a while. Do not know what works in the past to take the pain away. Asymptomatic. No sign or symptoms of distress or SOB, does not appear to be in pain. No change in circulation. No sweating. Will continue to monitor. Will order EKG to rule out any cardiac issues related to meds changes. Got flu vaccine yesterday on admission. 03/07/25: Meet with patient in assigned room. Remain in bed after breakfast not yet taking AM scheduled meds. Reports no issues with sleep or appetite. Patient says I bit myself last night . I still want to hurt myself . Remind patient and list coping skills that he can use to distract himself with healthier ways to express himself. Denies anxiety but report a little depressed, rated it a 5/10. Denies AVH. Patient also meets with SW later denies SI at that time during assessment. Compliant with meds, denies side effects. Discuss with patient regarding increasing in Zoloft for anxiety/depressed. Patient mostly keeps to self, visible sometimes but not a social person. No pain, no chest pain. Reviewed EKG result with patient. Increase Zoloft up to 100mg for anxiety/depression. 03/08/25: Met with patient in, he cover his face with the blanket. Reports seeing black shadows which he scares and cover his face as they tried to attack . No SI be observed the encounter. Wearing the same clothes as on the 1st day he came. Reports shower yesterday. He attempted to this morning when assigned RN encouraged him to do so. Denies voices. Not express suicidal thoughts. Not biting self encounter. Per nursing, patient slept for 8 hours, no side effects. Medication compliant. No appetite issues. Patient agreed to have Seroquel increased up to 100 mg at bedtime for hallucinations. Per nursing, patient slept for 8 hours, no side effects. Medication compliant. No appetite issues. Patient agreed to have Seroquel increased up to 100 mg at bedtime for hallucinations. 03/09/25: Patient reports no SI/SIB today for the first time. Also denies VH of shadows but report stomach pain. He cannot explain exactly symptoms. GI issues could be side effects from Sertraline which recently started and current dose is at 100mg daily. Explained and educated patient again regarding this side effects and will continue to monitor. Report he has not yet had BM with colace and MOM. Start on Senna 17.2mg daily at HS. Continue to monitor for BM and GI issues. Patient showered, got laundry done, visible in the rouse, went to one group yesterday but says he did not go to any groups just yet. Patient slept for 8 hours and compliant with medication. Less anxious, less depressed, more pleasant. Continue with current tx plan. 03/10 Patient reports that he is doing better and feeling back to his regular self; denies any SI or HI and feels that depression is better. AVH fully resolved, not seeing any shadows and patient reports he is sleeping well. Block Chopper Hand reviewed medications with patient and he does not want any of the doses changed feeling they are adequate. Patient said that he is planning to return to the hotel where he has been living. -patient seems to now be in good behavioral control, no biting. If patient able to continue demonstrating good behavioral and impulse control will proceed with discharge planning Plan Patient on 15 minute checks for safety. Initiate behavioral plan not able to remain safe during 15 minute checks. Admitted to . CV. Work with treatment team to do collateral. No current outpatient psychiatric services/therapist Contact the hospitalist regarding hospitalist consultation on admission: seen. Patient bite jamin on his right wrist from repeatedly biting himself. No evidence of redness, warmth, or drainage noted. ? Borderline personality disorder. Patient educated on: diagnosis, medication risk/benefits and therapeutic strategies Informed Consent: understands Reason for continued inpatient stay Substantial Risk for: rapid decompensation Time Spent With Patient Time: Total time managing care of this patient today ____ minutes.
[2025-03-10 12:24] LABS: Glucose, Whole Blood 136 mg/dL (60-115)
[2025-03-10 17:00] LABS: Glucose, Whole Blood 177 mg/dL (60-115)
[2025-03-10 20:00] VITALS: BP 112/69; PULSE 84; RESP 18; TEMP 36.9; O2SAT 94
[2025-03-10 20:56] LABS: Glucose, Whole Blood 166 mg/dL (60-115)
[2025-03-10] MEDS: Milk of Magnesia 30 ML ORAL.SUSP PO (21:46)
[2025-03-11 08:05] LABS: Glucose, Whole Blood 149 mg/dL (60-115)
[2025-03-11 08:10] VITALS: BP 109/65; PULSE 74; RESP 18; TEMP 36.8; O2SAT 96
[2025-03-11 08:59] VITALS: BP 109/65
[2025-03-11 11:58] LABS: Glucose, Whole Blood 261 mg/dL (60-115)
[2025-03-11 17:03] LABS: Glucose, Whole Blood 156 mg/dL (60-115)
--- NOTE | 2025-03-11 17:51 | P.PNPSI_ITS ---
Subjective Subjective Date of Service: 03/11/25 Reason For Visit: SI with plan Interim History: Met with patient; discussed with team Patient continues to report that he is feeling better; remains without any AVH, SI or HI and says he would like to proceed with discharge this . Though he remains isolative, he remains in good behavioral control and with appropriate interactions on approach. Mental Status Exam Mental Status Exam Narrative: Pt is alert and oriented; behavior is mostly isolative, keeping to himself in his room but is cooperative on approach and calm, in good behavioral and impulse control, no self-injurious behaviors; patient is not in distress; dressed in hospital attire unkempt, hair pulled back in a ponytail; mood is described as good and affect congruent, overall more calm; eye contact appropriate; Speech is normal rate, volume and prosody and not pressured; some psychomotor retardation present; thought process is organized and goal directed; Thought content is on tx and discharge; otherwise pertinent to relevant topics and without any delusional content, paranoid ideations or grandiosity; denies any SI/HI. Denies AVH and there is no evidence of perceptual disturbance. Patients insight and judgment fair Diagnostics Vital Signs (24Hr): Vital Signs - 24 hr 03/10/25 20:00 03/11/25 08:10 03/11/25 08:59 Temperature 98.5 F 98.3 F Pulse Rate 84 74 Respiratory Rate 18 18 Blood Pressure 112/69 109/65 109/65 Pulse Oximetry 94 96 Oxygen Delivery Method Room Air Room Air BMI result Body Mass Index 31.5 Labs 03/12/25 07:59 Labs: Laboratory Results - last 48 hr 03/09/25 03/10/25 03/10/25 20:32 07:47 12:19 POC Glucose 190 H 156 H 136 H 03/10/25 03/10/25 03/11/25 16:58 20:53 08:00 POC Glucose 177 H 166 H 149 H 03/11/25 03/11/25 11:54 16:58 POC Glucose 261 H 156 H Medications Medications Current Medications Acetaminophen (Acetaminophen 325 Mg Tablet) 650 mg PO Q6H PRN PRN Reason: Headache/Pain, Scale 1-10 Last Admin: 03/09/25 12:39 Dose: 650 mg Al Hydroxide/Mg Hydroxide (Magnesium Hydrox/Alum Hydrox 30 Ml Oral.Susp) 30 ml PO Q6H PRN PRN Reason: Heartburn/Nausea Last Admin: 03/08/25 16:45 Dose: 30 ml Amlodipine Besylate (Amlodipine Besylate 5 Mg Tablet) 5 mg PO DAILY [facility]; Protocol Last Admin: 03/11/25 08:59 Dose: 5 mg Dextrose (Dextrose 50 % 25 Gm/50 Ml Syringe) 25 gm IVPUSH Q15M PRN; Protocol PRN Reason: per Hypoglycemia Standing Ord. Docusate Sodium (Docusate Sodium 100 Mg Capsule) 100 mg PO BID [facility] Last Admin: 03/11/25 09:00 Dose: 100 mg Gabapentin (Gabapentin 400 Mg Capsule) 400 mg PO TID [facility] Last Admin: 03/11/25 15:05 Dose: 400 mg Glucose (Glucose Gel 15 Gm Gel..Gram.) 15 gm PO Q15M PRN; Protocol PRN Reason: per Hypoglycemia Standing Ord. Hydroxyzine HCl (Hydroxyzine Hcl 25 Mg Tablet) 25 mg PO Q6H PRN PRN Reason: mild anxiety Last Admin: 03/10/25 21:14 Dose: 25 mg Insulin Human Lispro (Insulin Lispro 100 Unit/Ml 3 Ml Vial) 0 unit SUBCUT QIDACHS [facility]; Protocol Last Admin: 03/11/25 17:20 Dose: 2 unit Magnesium Hydroxide (Milk Of Magnesia 30 Ml Oral.Susp) 30 ml PO DAILY PRN PRN Reason: Constipation Last Admin: 03/10/25 21:46 Dose: 30 ml Metformin HCl (Metformin Hcl 500 Mg Tablet) 500 mg PO BIDWM [facility] Last Admin: 03/11/25 17:20 Dose: 500 mg Nicotine (Nicotine 21 Mg Patch.Td24) 21 mg TRANSDERMA DAILY PRN PRN Reason: nicotine craving Nicotine Polacrilex (Nicotine Polacrilex 2 Mg Gum) 2 mg BUCCAL Q2H PRN PRN Reason: Nicotine Cravings Quetiapine Fumarate (Quetiapine Fumarate 25 Mg Tablet) 25 mg PO BID PRN PRN Reason: agitation/severe anxiety Last Admin: 03/10/25 21:15 Dose: 25 mg Quetiapine Fumarate (Quetiapine Fumarate 100 Mg Tablet) 100 mg PO BEDTIME [facility] Last Admin: 03/10/25 21:15 Dose: 100 mg Senna (Sennosides 8.6 Mg Tablet) 17.2 mg PO BEDTIME [facility] Last Admin: 03/10/25 21:15 Dose: 17.2 mg Sertraline HCl (Sertraline Hcl 100 Mg Tablet) 100 mg PO DAILY [facility] Last Admin: 03/11/25 09:00 Dose: 100 mg Trazodone HCl (Trazodone Hcl 50 Mg Tablet) 50 mg PO BEDTIME MRX1 PRN PRN Reason: Insomnia Last Admin: 03/10/25 21:15 Dose: 50 mg Allergies Allergies Allergy/AdvReac Type Severity Reaction Status Date / Time Penicillins (PCN) AdvReac Unknown Rash Verified 03/11/25 09:02 Assessment & Plan Assessment & Plan (1) Depression, unspecified: Status: Acute Code(s): F32.A - Depression, unspecified (2) Insulin dependent type 2 diabetes mellitus: Status: Acute Code(s): E11.9 - Type 2 diabetes mellitus without complications; Z79.4 - nursing home (current) use of insulin (3) HTN (hypertension): Status: Acute Code(s): I10 - Essential (primary) hypertension Plan HPI: Patient is is 54 years old single Egyptian-speaking male with history of depression, diabetes type 2, GERD, and hypertension presents to the hospital for suicidal thoughts with plan to stab himself. Patient was BIBA the reporting SI to police. Patient was agitated upon arrival and was required physical restraints. He was just discharged from [facility] 03/03. History of numerous hospitalizations, being homeless. He does not want to stay at the shelters. Per discharge note from previous admission, patient was planning to go to [place] to stay with a friend but the plan did not work out. Formulation/clinical reasoning: Homeless, more compliant with treatment, noncompliant with medications after discharge, making conditional suicidal statements, he will kill himself with a knife which is available, do not feel safe in community, no outpatient providers, limited supports in community. Current time, does not feel safe in the hospital neither. Even the above information, patient would be benefit in restrictive environment for his own safety, medication management, and refer patient to Psychiatric Services for aftercare. Hospital course: 03/05/25: Discussed with patient regarding medication. Reported that he has not taking medication for 6 months- which was not consistent with ED reports he was in the and was just discharged a couple of days ago. Able to recall some of his own medications. Start Seroquel 50 at bedtime with b.i.d. p.r.n. for agitation/severe anxiety Zoloft 50 mg once daily in the morning for depression/anxiety Melatonin 6 mg at bedtime for insomnia Gabapentin 400 t.i.d. for nerve pain on legs. Metformin 500 twice a day for diabetes Point of care q.i.d. per diabetic protocol. Amlodipine 5 mg daily in the morning. Patient good like to have flu vaccine. 03/06/25: Meet with patient in assigned room where he is eating breakfast. Continue to report passive SI with SIB as usual at baseline. However, he does not bite his skin/arms during encounter. Report no HI/AVH. Denies side effects from meds. slept well and has been eating well. Per nursing, patient slept for 8. Report chest pain comes and goes. Report hx of same experience once in a while. Do not know what works in the past to take the pain away. Asymptomatic. No sign or symptoms of distress or SOB, does not appear to be in pain. No change in circulation. No sweating. Will continue to monitor. Will order EKG to rule out any cardiac issues related to meds changes. Got flu vaccine yesterday on admission. 03/07/25: Meet with patient in assigned room. Remain in bed after breakfast not yet taking AM scheduled meds. Reports no issues with sleep or appetite. Patient says I bit myself last night . I still want to hurt myself . Remind patient and list coping skills that he can use to distract himself with healthier ways to express himself. Denies anxiety but report a little depressed, rated it a 5/10. Denies AVH. Patient also meets with SW later denies SI at that time during assessment. Compliant with meds, denies side effects. Discuss with patient regarding increasing in Zoloft for anxiety/depressed. Patient mostly keeps to self, visible sometimes but not a social person. No pain, no chest pain. Reviewed EKG result with patient. Increase Zoloft up to 100mg for anxiety/depression. 03/08/25: Met with patient in, he cover his face with the blanket. Reports seeing black shadows which he scares and cover his face as they tried to attack . No SI be observed the encounter. Wearing the same clothes as on the 1st day he came. Reports shower yesterday. He attempted to this morning when assigned RN encouraged him to do so. Denies voices. Not express suicidal thoughts. Not biting self encounter. Per nursing, patient slept for 8 hours, no side effects. Medication compliant. No appetite issues. Patient agreed to have Seroquel increased up to 100 mg at bedtime for hallucinations. 03/09/25: Patient reports no SI/SIB today for the first time. Also denies VH of shadows but report stomach pain. He cannot explain exactly symptoms. GI issues could be side effects from Sertraline which recently started and current dose is at 100mg daily. Explained and educated patient again regarding this side effects and will continue to monitor. Report he has not yet had BM with colace and MOM. Start on Senna 17.2mg daily at HS. Continue to monitor for BM and GI issues. Patient showered, got laundry done, visible in the rouse, went to one group yesterday but says he did not go to any groups just yet. Patient slept for 8 hours and compliant with medication. Less anxious, less depressed, more pleasant. Continue with current tx plan. 03/10 Patient reports that he is doing better and feeling back to his regular self; denies any SI or HI and feels that depression is better. AVH fully resolved, not seeing any shadows and patient reports he is sleeping well. Ice Cream Maker reviewed medications with patient and he does not want any of the doses changed feeling they are adequate. Patient said that he is planning to return to the hotel where he has been living. -patient seems to now be in good behavioral control, no biting. If patient able to continue demonstrating good behavioral and impulse control will proceed with discharge planning 03/11 Patient continues to report that he is feeling better; remains without any AVH, SI or HI and says he would like to proceed with discharge this . Though he remains isolative, he remains in good behavioral control and with appropriate interactions on approach -patient continues to report good mood, depression resolved that he remains without AVH, SI or HI; patient remains in good behavioral and impulse control and no self-harming behaviors. Will proceed with discharge planning -regarding history of self-injurious behavior by biting, at this time fiction and nonfiction prose writer has no history to diagnose with borderline personality disorder; rather this seems to have been a regressed behavior when patient is stressed. It is now resolved. Plan Patient on 15 minute checks for safety. Admitted to [facility]. [facility]. Work with treatment team to do collateral. No current outpatient psychiatric services/therapist but has [facility] worker Contact the hospitalist regarding hospitalist consultation on admission: seen. Patient educated on: diagnosis, medication risk/benefits and therapeutic strategies Informed Consent: understands Reason for continued inpatient stay Substantial Risk for: stable for discharge Time Spent With Patient Time: Total time managing care of this patient today ____ minutes.
[2025-03-11 19:44] VITALS: BP 110/70; PULSE 93; TEMP 37.1; O2SAT 98
[2025-03-11 20:43] LABS: Glucose, Whole Blood 187 mg/dL (60-115)
[2025-03-12 08:00] VITALS: BP 116/66; PULSE 81; RESP 16; TEMP 36.7; O2SAT 96
[2025-03-12 08:08] LABS: Glucose, Whole Blood 138 mg/dL (60-115)
[2025-03-12 08:37] LABS: Creatinine Clr Calc Pharmacy 98.9; Estimated Glomerular Filt Rate > 60
[2025-03-12 08:42] VITALS: BP 116/66
[2025-03-12] MEDS: Milk of Magnesia 30 ML ORAL.SUSP PO (08:47)
[2025-03-12 11:52] LABS: Glucose, Whole Blood 158 mg/dL (60-115)
[2025-03-12 16:49] LABS: Glucose, Whole Blood 175 mg/dL (60-115)
[2025-03-12 20:00] VITALS: BP 143/74; PULSE 82; RESP 18; TEMP 37.1; O2SAT 93
[2025-03-12 21:04] LABS: Glucose, Whole Blood 212 mg/dL (60-115)
--- NOTE | 2025-03-12 22:26 | P.PNPSI_ITS ---
Subjective Subjective Date of Service: 03/12/25 Reason For Visit: SI with plan Interim History: Met with patient; discussed with team Patient reports he remains in good mood and looking forward to discharge, patient has a noticeably brighter affect. Patient however complains of constipation and says that his anus his hurting. Sedimentationist and nurse examined area which was a little red, seeming to be from lack of hygiene. Patient agreed to shower and afterwards reported area felt better; patient also had a bowel movement. Mental Status Exam Mental Status Exam Narrative: Pt is alert and oriented; behavior is mostly isolative, keeping to himself in his room but is cooperative on approach and calm, in good behavioral and impulse control, no self-injurious behaviors; patient is not in distress; dressed in hospital attire with adequate hygiene; mood is described as good and affect congruent, brighter, calm; eye contact appropriate; Speech is normal rate, volume and prosody and not pressured; no psychomotor retardation present; thought process is organized and goal directed; Thought content is on tx and discharge; otherwise pertinent to relevant topics and without any delusional content, paranoid ideations or grandiosity; denies any SI/HI. Denies AVH and there is no evidence of perceptual disturbance. Patients insight and judgment fair Diagnostics Vital Signs (24Hr): Vital Signs - 24 hr 03/12/25 08:00 03/12/25 08:42 03/12/25 20:00 Temperature 98.1 F 98.8 F Pulse Rate 81 82 Respiratory Rate 16 18 Blood Pressure 116/66 116/66 143/74 H Pulse Oximetry 96 93 Oxygen Delivery Method Room Air Room Air BMI result Body Mass Index 31.5 Labs 03/12/25 07:59 Labs: Laboratory Results - last 48 hr 03/11/25 03/11/25 03/11/25 08:00 11:54 16:58 Creatinine Estim Creat Clear Calc Estimated GFR POC Glucose 149 H 261 H 156 H 03/11/25 03/12/25 03/12/25 20:39 07:59 08:04 Creatinine 1.15 Estim Creat Clear Calc 98.9 Estimated GFR > 60 POC Glucose 187 H 138 H 03/12/25 03/12/25 03/12/25 11:48 16:45 21:00 Creatinine Estim Creat Clear Calc Estimated GFR POC Glucose 158 H 175 H 212 H Medications Medications Current Medications Acetaminophen (Acetaminophen 325 Mg Tablet) 650 mg PO Q6H PRN PRN Reason: Headache/Pain, Scale 1-10 Last Admin: 03/09/25 12:39 Dose: 650 mg Al Hydroxide/Mg Hydroxide (Magnesium Hydrox/Alum Hydrox 30 Ml Oral.Susp) 30 ml PO Q6H PRN PRN Reason: Heartburn/Nausea Last Admin: 03/08/25 16:45 Dose: 30 ml Amlodipine Besylate (Amlodipine Besylate 5 Mg Tablet) 5 mg PO DAILY [facility]; Protocol Last Admin: 03/12/25 08:42 Dose: 5 mg Dextrose (Dextrose 50 % 25 Gm/50 Ml Syringe) 25 gm IVPUSH Q15M PRN; Protocol PRN Reason: per Hypoglycemia Standing Ord. Docusate Sodium (Docusate Sodium 100 Mg Capsule) 100 mg PO BID [facility] Last Admin: 03/12/25 21:06 Dose: 100 mg Gabapentin (Gabapentin 400 Mg Capsule) 400 mg PO TID [facility] Last Admin: 03/12/25 21:07 Dose: 400 mg Glucose (Glucose Gel 15 Gm Gel..Gram.) 15 gm PO Q15M PRN; Protocol PRN Reason: per Hypoglycemia Standing Ord. Guaifenesin (Guaifenesin La 600 Mg Tab.Er.12h) 600 mg PO BID PRN PRN Reason: Cough Hydroxyzine HCl (Hydroxyzine Hcl 25 Mg Tablet) 25 mg PO Q6H PRN PRN Reason: mild anxiety Last Admin: 03/10/25 21:14 Dose: 25 mg Insulin Human Lispro (Insulin Lispro 100 Unit/Ml 3 Ml Vial) 0 unit SUBCUT QIDACHS [facility]; Protocol Last Admin: 03/12/25 21:08 Dose: 4 unit Magnesium Hydroxide (Milk Of Magnesia 30 Ml Oral.Susp) 30 ml PO DAILY PRN PRN Reason: Constipation Last Admin: 03/12/25 08:47 Dose: 30 ml Metformin HCl (Metformin Hcl 500 Mg Tablet) 500 mg PO BIDWM [facility] Last Admin: 03/12/25 17:39 Dose: 500 mg Nicotine (Nicotine 21 Mg Patch.Td24) 21 mg TRANSDERMA DAILY PRN PRN Reason: nicotine craving Nicotine Polacrilex (Nicotine Polacrilex 2 Mg Gum) 2 mg BUCCAL Q2H PRN PRN Reason: Nicotine Cravings Polyethylene Glycol (Polyethylene Glycol 3350 17 Gm Powd.Pack) 17 gm PO DAILY PRN PRN Reason: Constipation Quetiapine Fumarate (Quetiapine Fumarate 25 Mg Tablet) 25 mg PO BID PRN PRN Reason: agitation/severe anxiety Last Admin: 03/10/25 21:15 Dose: 25 mg Quetiapine Fumarate (Quetiapine Fumarate 100 Mg Tablet) 100 mg PO BEDTIME [facility] Last Admin: 03/12/25 21:06 Dose: 100 mg Senna (Sennosides 8.6 Mg Tablet) 17.2 mg PO BEDTIME [facility] Last Admin: 03/12/25 21:07 Dose: 17.2 mg Sertraline HCl (Sertraline Hcl 100 Mg Tablet) 100 mg PO DAILY [facility] Last Admin: 03/12/25 08:42 Dose: 100 mg Trazodone HCl (Trazodone Hcl 50 Mg Tablet) 50 mg PO BEDTIME MRX1 PRN PRN Reason: Insomnia Last Admin: 03/10/25 21:15 Dose: 50 mg Zinc Oxide (Zinc Oxide (Triple Paste) 56.7 Gm Oint) 1 appl TOPICAL QID PRN; Protocol PRN Reason: Diaper Rash Allergies Allergies Allergy/AdvReac Type Severity Reaction Status Date / Time Penicillins (PCN) AdvReac Unknown Rash Verified 03/11/25 09:02 Assessment & Plan Assessment & Plan (1) Insulin dependent type 2 diabetes mellitus: Status: Acute Code(s): E11.9 - Type 2 diabetes mellitus without complications; Z79.4 - continuous churn buttermaker (current) use of insulin (2) HTN (hypertension): Status: Acute Code(s): I10 - Essential (primary) hypertension (3) MDD (major depressive disorder), recurrent, severe, with psychosis: Status: Acute Code(s): F33.3 - Major depressive disorder, recurrent, severe with psychotic symptoms Plan HPI: Patient is is 54 years old single Mohawk-speaking male with history of depression, diabetes type 2, GERD, and hypertension presents to the hospital for suicidal thoughts with plan to stab himself. Patient was BIBA the reporting SI to police. Patient was agitated upon arrival and was required physical restraints. He was just discharged from [facility] 03/03. History of numerous hospitalizations, being homeless. He does not want to stay at the shelters. Per discharge note from previous admission, patient was planning to go to [place] to stay with a friend but the plan did not work out. Formulation/clinical reasoning: Homeless, more compliant with treatment, noncompliant with medications after discharge, making conditional suicidal statements, he will kill himself with a knife which is available, do not feel safe in community, no outpatient providers, limited supports in community. Current time, does not feel safe in the hospital neither. Even the above information, patient would be benefit in restrictive environment for his own safety, medication management, and refer patient to Psychiatric Services for aftercare. Hospital course: 03/05/25: Discussed with patient regarding medication. Reported that he has not taking medication for 6 months- which was not consistent with ED reports he was in the IP and was just discharged a couple of days ago. Able to recall some of his own medications. Start Seroquel 50 at bedtime with b.i.d. p.r.n. for agitation/severe anxiety Zoloft 50 mg once daily in the morning for depression/anxiety Melatonin 6 mg at bedtime for insomnia Gabapentin 400 t.i.d. for nerve pain on legs. Metformin 500 twice a day for diabetes Point of care q.i.d. per diabetic protocol. Amlodipine 5 mg daily in the morning. Patient good like to have flu vaccine. 03/06/25: Meet with patient in assigned room where he is eating breakfast. Continue to report passive SI with SIB as usual at baseline. However, he does not bite his skin/arms during encounter. Report no HI/AVH. Denies side effects from meds. slept well and has been eating well. Per nursing, patient slept for 8. Report chest pain comes and goes. Report hx of same experience once in a while. Do not know what works in the past to take the pain away. Asymptomatic. No sign or symptoms of distress or SOB, does not appear to be in pain. No change in circulation. No sweating. Will continue to monitor. Will order EKG to rule out any cardiac issues related to meds changes. Got flu vaccine yesterday on admission. 03/07/25: Meet with patient in assigned room. Remain in bed after breakfast not yet taking AM scheduled meds. Reports no issues with sleep or appetite. Patient says I bit myself last night . I still want to hurt myself . Remind patient and list coping skills that he can use to distract himself with healthier ways to express himself. Denies anxiety but report a little depressed, rated it a 5/10. Denies AVH. Patient also meets with SW later denies SI at that time during assessment. Compliant with meds, denies side effects. Discuss with patient regarding increasing in Zoloft for anxiety/depressed. Patient mostly keeps to self, visible sometimes but not a social person. No pain, no chest pain. Reviewed EKG result with patient. Increase Zoloft up to 100mg for anxiety/depression. 03/08/25: Met with patient in, he cover his face with the blanket. Reports seeing black shadows which he scares and cover his face as they tried to attack . No SI be observed the encounter. Wearing the same clothes as on the 1st day he came. Reports shower yesterday. He attempted to this morning when assigned RN encouraged him to do so. Denies voices. Not express suicidal thoughts. Not biting self encounter. Per nursing, patient slept for 8 hours, no side effects. Medication compliant. No appetite issues. Patient agreed to have Seroquel increased up to 100 mg at bedtime for hallucinations. 03/09/25: Patient reports no SI/SIB today for the first time. Also denies VH of shadows but report stomach pain. He cannot explain exactly symptoms. GI issues could be side effects from Sertraline which recently started and current dose is at 100mg daily. Explained and educated patient again regarding this side effects and will continue to monitor. Report he has not yet had BM with colace and MOM. Start on Senna 17.2mg daily at HS. Continue to monitor for BM and GI issues. Patient showered, got laundry done, visible in the rouse, went to one group yesterday but says he did not go to any groups just yet. Patient slept for 8 hours and compliant with medication. Less anxious, less depressed, more pleasant. Continue with current tx plan. 03/10 Patient reports that he is doing better and feeling back to his regular self; denies any SI or HI and feels that depression is better. AVH fully resolved, not seeing any shadows and patient reports he is sleeping well. Sedimentationist reviewed medications with patient and he does not want any of the doses changed feeling they are adequate. Patient said that he is planning to return to the hotel where he has been living. -patient seems to now be in good behavioral control, no biting. If patient able to continue demonstrating good behavioral and impulse control will proceed with discharge planning 03/11 Patient continues to report that he is feeling better; remains without any AVH, SI or HI and says he would like to proceed with discharge this . Though he remains isolative, he remains in good behavioral control and with appropriate interactions on approach -patient continues to report good mood, depression resolved that he remains without AVH, SI or HI; patient remains in good behavioral and impulse control and no self-harming behaviors. Will proceed with discharge planning -regarding history of self-injurious behavior by biting, at this time editorial writer has no history to diagnose with borderline personality disorder; rather this seems to have been a regressed behavior when patient is stressed. It is now resolved. -discussed diabetes and patient does not take insulin at home and does not want to 03/12 Patient reports he remains in good mood and looking forward to discharge, patient has a noticeably brighter affect. Patient however complains of constipation and says that his anus his hurting. Sedimentationist and nurse examined area which was a little red, seeming to be from lack of hygiene. Patient agreed to shower and afterwards reported area felt better; patient also had a bowel movement. Patient asking for discharge tomorrow. He back to his baseline and remains in good behavioral and impulse control, depression resolved and patient is without any SI/HI/AVH. Though mostly isolative to himself, patient is appropriate on approach and organized in speech and behavior. Patient is not in imminent risk for harm to self or others and appropriate to return to the community for treatment. His request for discharge honored. Plan Patient on 15 minute checks for safety. Admitted to [facility]. CV. Work with treatment team to do collateral. No current outpatient psychiatric services/therapist but has [facility] worker Contact the hospitalist regarding hospitalist consultation on admission: seen. Patient bite jamin on his right wrist from repeatedly biting himself. No evidence of redness, warmth, or drainage noted. ? Borderline personality disorder. Patient educated on: diagnosis, medication risk/benefits and medical condition Informed Consent: understands Reason for continued inpatient stay Substantial Risk for: stable for discharge Time Spent With Patient Time: Total time managing care of this patient today ____ minutes.
--- NOTE | 2025-03-13 05:14 | P.DS_ITS ---
DS: Providers Provider Date of Service: 03/13/25 Date of admission: 03/04/25 20:23 Date of discharge: 03/13/25 Primary care physician: Nonstaff Physician Admitting clinician: Tami Farnsworth Consults: 03/04/25 19:22 Consult to Hospitalist Routine Comment: Consulting Provider: [facility] [place] [facility] Reason For Exam: Admission physical Attending physician on discharge: Juanjo Alberts DS: Diagnosis Discharge Diagnosis (1) Depression, unspecified: Status: Acute (2) Insulin dependent type 2 diabetes mellitus: Status: Acute (3) HTN (hypertension): Status: Acute DS: Medications Discharge Medications Home Medications: Previous Rx's ?Medication ?Instructions ?Recorded amlodipine 5 mg tablet (Norvasc) 5 mg PO DAILY 30 days #30 tabs 03/13/25 docusate sodium 100 mg capsule 100 mg PO BID 30 days # 60 caps 03/13/25 gabapentin 400 mg capsule 400 mg PO TID 30 days #90 ca ps 03/13/25 metformin 500 mg tablet 500 mg PO BIDWMEAL 30 days # 60 tabs 03/13/25 quetiapine 100 mg tablet 100 mg PO BEDTIME 30 days #3 0 tabs 03/13/25 quetiapine 25 mg tablet 25 mg PO BID PRN moderate an xiety 03/13/25 30 days #30 tabs sennosides 8.6 mg tablet (Senna 17.2 mg (2 x 8.6 mg) P O BEDTIME 03/13/25 Lax) PRN constipation 30 days #60 tabs sertraline 100 mg tablet 100 mg PO DAILY 30 days #30 tabs 03/13/25 trazodone 50 mg tablet 50 mg PO BEDTIME PRN Insomni a 30 03/13/25 days #30 tabs Mental Status Exam Mental Status Exam Narrative: Pt is alert and oriented; behavior WNL, cooperative, calm, appropriate; patient is not in distress; dressed in casual attire with adequate hygiene; mood is described as good and affect congruent, brighter, calm; eye contact appropriat e; Speech is normal rate, volume and prosody and not pressured; no psychomotor retardation present; thought process is organized and goal directed; Thought content is on tx and discharge; otherwise pertinent to relevant topics and without any delusional content, paranoid ideations or grandiosity; denies any SI/HI. Denies AVH and there is no evidence of perceptual disturbance. Patients insight and judgment fair Data Data Completed and Pending Completed studies during hospitalization [Text1]: 03/06/25 03/06/25 03/06/25 08:12 11:44 16:14 Creatinine Estim Creat Clear Calc Estimated GFR POC Glucose 120 H 207 H 130 H 03/06/25 03/07/25 03/07/25 21:41 07:58 12:13 Creatinine Estim Creat Clear Calc Estimated GFR POC Glucose 174 H 118 H 169 H 03/07/25 03/07/25 03/08/25 17:07 20:06 07:50 Creatinine Estim Creat Clear Calc Estimated GFR POC Glucose 190 H 136 H 199 H 03/08/25 03/08/25 03/08/25 12:07 16:26 20:05 Creatinine Estim Creat Clear Calc Estimated GFR POC Glucose 145 H 214 H 184 H 03/09/25 03/09/25 03/09/25 08:00 11:56 16:31 Creatinine Estim Creat Clear Calc Estimated GFR POC Glucose 124 H 147 H 164 H 03/09/25 03/10/25 03/10/25 20:32 07:47 12:19 Creatinine Estim Creat Clear Calc Estimated GFR POC Glucose 190 H 156 H 136 H 03/10/25 03/10/25 03/11/25 16:58 20:53 08:00 Creatinine Estim Creat Clear Calc Estimated GFR POC Glucose 177 H 166 H 149 H 03/11/25 03/11/25 03/11/25 11:54 16:58 20:39 Creatinine Estim Creat Clear Calc Estimated GFR POC Glucose 261 H 156 H 187 H 03/12/25 03/12/25 03/12/25 07:59 08:04 11:48 Creatinine 1.15 Estim Creat Clear Calc 98.9 Estimated GFR > 60 POC Glucose 138 H 158 H 03/12/25 03/12/25 16:45 21:00 Creatinine Estim Creat Clear Calc Estimated GFR POC Glucose 175 H 212 H DS: Summary Hospital Course Hospital Course: HPI: Patient is is 54 years old single Ecuadorean-speaking male with history of depression, diabetes type 2, GERD, and hypertension presents to the hospital for suicidal thoughts with plan to stab himself. Patient was BIBA the reporting SI to police. Patient was agitated upon arrival and was required physical restraints. He was just discharged from [facility] hospital 03/03. History of numerous hospitalizations, being homeless. He does not want to stay at the shelters. Per discharge note from previous admission, patient was planning to go to [place] to stay with a friend but the plan did not work out. Formulation/clinical reasoning: Homeless, more compliant with treatment, noncompliant with medications after discharge, making conditional suicidal statements, he will kill himself with a knife which is available, do not feel safe in community, no outpatient providers, limited supports in community. Current time, does not feel safe in the hospital neither. Even the above information, patient would be benefit in restrictive environment for his own safety, medication management, and refer patient to Psychiatric Services for aftercare. Hospital course: 03/05/25: Discussed with patient regarding medication. Reported that he has not taking medication for 6 months- which was not consistent with ED reports he was in the IP and was just discharged a couple of days ago. Able to recall some of his own medications. Start Seroquel 50 at bedtime with b.i.d. p.r.n. for agitation/severe anxiety Zoloft 50 mg once daily in the morning for depression/anxiety Melatonin 6 mg at bedtime for insomnia Gabapentin 400 t.i.d. for nerve pain on legs. Metformin 500 twice a day for diabetes Point of care q.i.d. per diabetic protocol. Amlodipine 5 mg daily in the morning. Patient good like to have flu vaccine. 03/06/25: Meet with patient in assigned room where he is eating breakfast. Continue to report passive SI with SIB as usual at baseline. However, he does not bite his skin/arms during encounter. Report no HI/AVH. Denies side effects from meds. slept well and has been eating well. Per nursing, patient slept for 8. Report chest pain comes and goes. Report hx of same experience once in a while. Do not know what works in the past to take the pain away. Asymptomatic. No sign or symptoms of distress or SOB, does not appear to be in pain. No change in circulation. No sweating. Will continue to monitor. Will order EKG to rule out any cardiac issues related to meds changes. Got flu vaccine yesterday on admission. 03/07/25: Meet with patient in assigned room. Remain in bed after breakfast not yet taking AM scheduled meds. Reports no issues with sleep or appetite. Patient says I bit myself last night . I still want to hurt myself . Remind patient and list coping skills that he can use to distract himself with healthier ways to express himself. Denies anxiety but report a little depressed, rated it a 5/10. Denies AVH. Patient also meets with SW later denies SI at that time during assessment. Compliant with meds, denies side effects. Discuss with patient regarding increasing in Zoloft for anxiety/depressed. Patient mostly keeps to self, visible sometimes but not a social person. No pain, no chest pain. Reviewed EKG result with patient. Increase Zoloft up to 100mg for anxiety/depression. 03/08/25: Met with patient in, he cover his face with the blanket. Reports seeing black shadows which he scares and cover his face as they tried to attack . No SI be observed the encounter. Wearing the same clothes as on the 1st day he came. Reports shower yesterday. He attempted to this morning when assigned RN encouraged him to do so. Denies voices. Not express suicidal thoughts. Not biting self encounter. Per nursing, patient slept for 8 hours, no side effects. Medication compliant. No appetite issues. Patient agreed to have Seroquel increased up to 100 mg at bedtime for hallucinations. 03/09/25: Patient reports no SI/SIB today for the first time. Also denies VH of shadows but report stomach pain. He cannot explain exactly symptoms. GI issues could be side effects from Sertraline which recently started and current dose is at 100mg daily. Explained and educated patient again regarding this side effects and will continue to monitor. Report he has not yet had BM with jose berry nd MOM. Start on Senna 17.2mg daily at HS. Continue to monitor for BM and GI issues. Patient showered, got laundry done, visible in the rouse, went to one group yesterday but says he did not go to any groups just yet. Patient slept for 8 hours and compliant with medication. Less anxious, less depressed, more pleasant. Continue with current tx plan. 03/10 Patient reports that he is doing better and feeling back to his regular self; denies any SI or HI and feels that depression is better. AVH fully resolved, not seeing any shadows and patient reports he is sleeping well. Architect [employer] reviewed medications with patient and he does not want any of the doses changed feeling they are adequate. Patient said that he is planning to return to the hotel where he has been living. -patient seems to now be in good behavioral control, no biting. If patient able to continue demonstrating good behavioral and impulse control will proceed with discharge planning 03/11 Patient continues to report that he is feeling better; remains without any AVH, SI or HI and says he would like to proceed with discharge this . Though he remains isolative, he remains in good behavioral control and with appropriate interactions on approach -patient continues to report good mood, depression resolved that he remains without AVH, SI or HI; patient remains in good behavioral and impulse control and no self-harming behaviors. Will proceed with discharge planning -regarding history of self-injurious behavior by biting, at this time song writer has no history to diagnose with borderline personality disorder; rather this seems to have been a regressed behavior when patient is stressed. It is now resolved. -discussed diabetes and patient does not take insulin at home and does not want to 03/12 Patient reports he remains in good mood and looking forward to discharge, patient has a noticeably brighter affect. Patient however complains of constipation and says that his anus his hurting. Architect [employer] and nurse examined area which was a little red, seeming to be from lack of hygiene. Patient agreed to shower and afterwards reported area felt better; patient also had a bowel movement. Patient asking for discharge tomorrow. He back to his baseline and remains in good behavioral and impulse control, depression resolved and patient is without any SI/HI/AVH. Though mostly isolative to himself, patient is appropriate on approach and organized in speech and behavior. Patient is not in imminent risk for harm to self or others and appropriate to return to the community for treatment. His request for discharge honored. Status at Discharge Functional status at discharge: independent ambulation Overall status at discharge: patient is back to baseline Time Spent with Patient Time attestation: Total time managing care of this patient today _40___ minutes. 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, in full remission Referrals: [facility]: JEREMIAH Cha [Other] - 1 Week Referral Note: Scheduled appointment with primary outpatient provider Discharge Medications: New quetiapine 100 mg Tablet 100 mg PO BEDTIME 30 Days Qty: 30 0RF quetiapine 25 mg Tablet 25 mg PO BID PRN (Reason: moderate anxiety) 30 Days Qty: 30 0RF sertraline 100 mg Tablet 100 mg PO DAILY 30 Days Qty: 30 0RF trazodone 50 mg Tablet 50 mg PO BEDTIME PRN (Reason: Insomnia) 30 Days Qty: 30 0RF sennosides [Senna Lax] 8.6 mg Tablet 17.2 mg PO BEDTIME PRN (Reason: constipation) 30 Days Qty: 60 0RF docusate sodium 100 mg Capsule 100 mg PO BID 30 Days Qty: 60 0RF Rx Instructions: hold for loose stool Continued gabapentin 400 mg capsule 400 mg PO TID 30 Days Qty: 90 0RF amlodipine [Norvasc] 5 mg Tablet 5 mg PO DAILY 30 Days Qty: 30 0RF Changed metformin 500 mg Tablet 500 mg PO BIDWMEAL 30 Days Qty: 60 0RF Discharge Orders: Discharge Order (Routine); Ordered 03/13/25 Ordered By: Juanjo Alberts Diet: Diabetic diet Activity on Discharge: As tolerated Stand Alone Forms: Patient Portal Discharge page Print Language: Ecuadorean Care Plan Goals: Maintain mood and safe behaviors Take medications as prescribed Practice coping skills Continue with outpatient providers and reach out to them as needed Health Concerns: Mood stability and behaviors Diabetes Hypertension Plan of Treatment: Follow up with your PCP, psychiatric provider and other outpatient providers regarding above concerns Take medications as prescribed Assessment: Risk assessment at time of discharge:? Patient was interviewed prior to discharge and found to be fully oriented and without any SI or HI. Patient has improved insight and judgment and wants to continue treatment. Patient is not in imminent risk of harm to self or others and has a safety plan that includes presenting to the closest ER or calling 911 if feeling unsafe.? Patient has been observed closely by nursing and unit staff throughout admission; patient has not engaged in any behaviors that suggest dangerousness to self or others and has demonstrated appropriate behaviors and impulse control
[2025-03-13 07:00] VITALS: BMI 34.4
[2025-03-13 08:00] VITALS: BP 109/69; PULSE 95; RESP 16; TEMP 36.9; O2SAT 95
[2025-03-13 08:03] LABS: Glucose, Whole Blood 145 mg/dL (60-115)
[2025-03-13 08:14] VITALS: BP 109/69
== END 2025-03-13 10:57 | disposition home or self-care (01) | DRG 751 ==
PROVIDERS: Nurse Practitioner Family; Nurse Practitioner Psychiatric/Mental Health; Admitting Provider Psychiatry & Neurology Psychiatry; Visit Provider Psychiatry & Neurology Psychiatry
DX: F33.1 Major depressive disorder, recurrent, moderate (principal); E11.9 Type 2 diabetes mellitus without complications; I10 Essential (primary) hypertension; Z23 Encounter for immunization; S60.871A Other superficial bite of right wrist, initial encounter; X83.8XXA Intentional self-harm by other specified means, initial encounter; Z59.02 Unsheltered homelessness; Z79.84 Long term (current) use of oral hypoglycemic drugs; Z79.899 Other long term (current) drug therapy
CPT/HCPCS: 36415; 80053; 80061; 82565; 82607; 82746; 82947; 83036; 83735; 84439; 84443; 90656; 93005

== ENCOUNTER 2025-03-04 20:23 | Outpatient (BNV) | payer OTHER, SELFPAY | END 2025-03-06 13:11 | PROVIDERS: Admitting Provider Psychiatry & Neurology Psychiatry; Visit Provider Internal Medicine Cardiovascular Disease | DX: R07.9 Chest pain, unspecified (principal) | CPT/HCPCS: 93010 ==

== ENCOUNTER → 2025-03-04 20:23 | Outpatient (BNV) | payer OTHER, SELFPAY | PROVIDERS: Admitting Provider Psychiatry & Neurology Psychiatry; Visit Provider Nurse Practitioner Psychiatric/Mental Health | DX: F32.2 Major depressive disorder, single episode, severe without psychotic features (principal); E11.9 Type 2 diabetes mellitus without complications; Z79.4 Long term (current) use of insulin; I10 Essential (primary) hypertension | CPT/HCPCS: 90792; 99232 ==

== ENCOUNTER → 2025-03-04 20:23 | Outpatient (BNV) | payer OTHER, SELFPAY | PROVIDERS: Admitting Provider Psychiatry & Neurology Psychiatry; Visit Provider Nurse Practitioner Family | DX: E11.9 Type 2 diabetes mellitus without complications (principal); Z79.4 Long term (current) use of insulin | CPT/HCPCS: 99221 ==